=== PATIENT | female | born 1945 | race Caucasian/White ===

== ENCOUNTER → 2017-01-01 | Outpatient (CLI) | payer OTHER, MEDICARE ==
--- NOTE | 2017-01-02 08:01 | MAMMOGRAPHY REPORT ---
BILATERAL DIGITAL SCREENING MAMMOGRAM TOMOSYNTHESIS WITH CAD: 01/01/2017 CLINICAL HISTORY: Routine screening. Patient has no complaints. TECHNIQUE: Breast tomosynthesis in addition to standard 2D mammography was performed. Current study was also evaluated with a Computer Aided Detection (CAD) system. COMPARISON: Comparison is made to exams dated: 12/29/2015 mammogram, 01/07/2016 mammogram, 01/07/2016 ul trasound, 12/25/2014 mammogram, 09/01/2014 ultrasound, and 09/01/2014 mammogram - [facility] enter. BREAST COMPOSITION: The tissue of both breasts is heterogeneously dense, which may obscure small mas ses. FINDINGS: No new suspicious mass, architectural distortion or cluster of microcalcifications is seen . There are stable asymmetries in the upper outer left breast and superior right breast. An asymmet ry in the medial left breast is no longer seen, confirming benignity. There are mild vascular calcif ications and scattered benign round calcifications in the breasts. IMPRESSION: ACR BI-RADS CATEGORY 1: NEGATIVE There is no mammographic evidence of malignancy. A 1 year screening mammogram is recommended. The pa tient will receive written notification of the results. Approximately 10% of breast cancers are not detected with mammography. A negative mammographic report should not delay biopsy if a clinically suggestive mass is present. Daphne Joiner M.D. ay/:01/01/2017 16:19:01 Strategic Account Executive: Jeni YANEZ)([place]), [facility] letter sent: Normal 1/2 BI-RADS Code: ACR BI-RADS Category 1: Negative
== END | disposition home or self-care (01) ==
LOC: C.MAMM 07:34
PROVIDERS: ATTEND Family Medicine
DX: Z12.31 Encounter for screening mammogram for malignant neoplasm of breast (principal)

== ENCOUNTER → 2017-05-09 | Outpatient (CLI) | payer OTHER, MEDICARE ==
--- NOTE | 2017-05-09 10:47 | DIAGNOSTIC IMAGING REPORT ---
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 Bones are mildly demineralized. No acute fracture or dislocation is identified. Small enthesophyte noted adjacent to the greater trochanter. IMPRESSION: 1. No acute fracture or dislocation. 2. Mild to moderate right hip osteoarthritis. The above report was generated using voice recognition software. It may contain grammatical, syntax or spelling errors. Electronically signed by: Justice Young M.D. 05/09/2017 10:46 AM Dictated Date/Time: 05/09/2017 10:44 AM
--- NOTE | 2017-05-09 10:50 | DIAGNOSTIC IMAGING REPORT ---
L-SPINE MIN 4 VIEWS ROUTINE HISTORY: 71 years-old Female STRAIN OF MUSCLES TENDONS @ LOWER RT LEG chronic right hip pain for approximately one year COMPARISON: ] Grafts of same day TECHNIQUE: 5 views of the lumbar spine FINDINGS: There is mild convex right curvature of the lumbar spine. Bones are mildly demineralized. Multilevel advanced intervertebral disc space narrowing, notably at L3-L4, L4-L5 and L5-S1. Severe facet arthrosis is also present at these levels. 5 mm anterolisthesis L3 on L4 is likely secondary to long-standing facet arthropathy. No compression deformity identified. Multilevel endplate spurring. Atherosclerotic plaquing of the aorta. Soft tissues are unremarkable. Lung bases appear clear. IMPRESSION: 1. No acute lumbar spine fracture or subluxation. 2. Severe intervertebral disc space narrowing and facet arthropathy at L3-L4, L4-L5 and L5-S1. 5 mm anterolisthesis L3 on L4 is likely secondary to long-standing facet disease. The above report was generated using voice recognition software. It may contain grammatical, syntax or spelling errors. Electronically signed by: Justice Young M.D. 05/09/2017 10:49 AM Dictated Date/Time: 05/09/2017 10:46 AM
== END | disposition home or self-care (01) ==
LOC: C.RADBC 10:16
PROVIDERS: ATTEND Nurse Practitioner
DX: M25.551 Pain in right hip (principal); S86.911A Strain of unspecified muscle(s) and tendon(s) at lower leg level, right leg, initial encounter; X58.XXXA Exposure to other specified factors, initial encounter; M54.5 Low back pain; M16.11 Unilateral primary osteoarthritis, right hip

== ENCOUNTER → 2018-03-07 | Outpatient (CLI) | payer OTHER, MEDICARE | END | disposition home or self-care (01) | LOC: C.MAMM 12:41 | PROVIDERS: ATTEND Nurse Practitioner | DX: M84.88 Other disorders of continuity of bone, other site (principal); M85.852 Other specified disorders of bone density and structure, left thigh; M85.851 Other specified disorders of bone density and structure, right thigh; M65.9 Synovitis and tenosynovitis, unspecified; R29.890 Loss of height ==

== ENCOUNTER 2020-04-23 11:05 | Observation (INO) ==
--- NOTE | 2020-04-22 16:00 | Anesthesiology Consultation ---
Date of Service April 22, 2020 Assessment & Plan (1) Encounter for pre-operative examination: - No preop labs: Will order CBC for AM DOS. - Patient late add-on for DOS 04/23: PAT RN unable to reach patient as of time of review. COVID test 03/05/20 was negative. Per ER evaluation 04/21, travel screen negative, no known COVID-19 positive contacts and no current COVID-19 related symptoms. Case reviewed with Paulette Landin: given low COVID risk, order placed for Yan COVID AM DOS. At anesthesiologist discretion regarding if 20/20 needed and what PPE needed from their perspective. Chart Review Chart Review: Acceptable Risk for Surgery (pending preop CBC AM DOS) History Surgery Operation Date: 04/23/20 12:55 Proposed Procedures p Right Ankle External Fixator Application - Víctor Al MD Height/Weight Height: 5 ft 3 in Weight: 54.5 kg Allergies Allergy/AdvReac Type Severity Reaction Status Date / Time latex AdvReac Mild mild Verified 04/22/20 16:00 redness Medications Home Medications Medication Instructions Recorded Confirmed Last Taken loratadine [Claritin] 10 mg PO QAM 02/19/20 04/21/20 03/09/20 Bone Strength 3 cap PO BID 04/21/20 04/21/20 Unknown Ibs Relief Biotic 7 0 tab PO DAILY 04/21/20 04/21/20 Unknown acetaminophen [Tylenol Extra 500 mg PO TID PRN 04/21/20 04/21/20 Unknown Strength] biotin 30,000 mcg PO DAILY 04/21/20 04/21/20 Unknown magnesium chloride [Slow-Mag] 128 mg PO BID 04/21/20 04/21/20 Unknown naproxen sodium [Aleve] 440 mg PO Q12H PRN 04/21/20 04/21/20 Unknown omega-3 fatty acids-vitamin E 3 cap PO DAILY 04/21/20 04/21/20 Unknown [Fish Oil] oxycodone 5 mg PO Q4H PRN #18 tab 04/21/20 Unknown polyvinyl alcohol [Dry Eyes] 1 drp OPB BID PRN 04/21/20 04/21/20 Unknown simethicone [Gas-X] 80 mg PO BID PRN 04/21/20 04/21/20 Unknown tetrahydrozoline [Red Eye] 1 drp OPB TID PRN 04/21/20 04/21/20 Unknown turmeric root extract 1,500 mg PO DAILY 04/21/20 04/21/20 Unknown zinc 0 mg PO BID 04/21/20 04/21/20 Unknown Past Medical History Medical History Arthritis Kidney cysts benign Seasonal allergies Past Family History Family History Father Family history of diabetes mellitus Brother Family history of diabetes mellitus Grandfather Family history of diabetes mellitus Past Surgical History Surgical History History of anesthesia reaction "slow to wake" History of cataract extraction Right cataract extraction with IOL: 03/10/20: MAC sedation at [facility] History of colonoscopy History of tonsillectomy [place] teeth removed Social History Smoking Status: Never smoker tobacco type: cigarettes Hx Alcohol Use: Yes Alcohol type: beer, wine and hard liquor alcohol intake frequency: a few times a month Hx Substance Use: No substance use type: does not use Testing Electrocardiogram Date: 04/22/20 SR with PAC's at 79bpm. STA, consider digitalis effect. Of note, patient not taking digitalis*
[~2020-04-23 11:05] MED LIST: BUPIVACAINE 0.5 % 5 MG/1 ML MPF 30ML VIAL ONE; CEFAZOLIN 1000MG 1,000 MG/7.5 ML SYR IV SCH; LR 15ML/HR IV SCH
[2020-04-23 11:51] LABS: Hemoglobin 11.4 g/dL (12.0-16.0); Mean Corpuscular Hemoglobin 31.8 pg (25-34); Mean Platelet Volume 8.8 fL (7.4-10.4); Platelet Count 260 K/uL (130-400); RDW Coefficient of Variation 13.8 % (11.5-14.5); RDW Standard Deviation 48.2 fL (36.4-46.3); Red Blood Count 3.58 M/uL (4.2-5.4); White Blood Count 8.35 K/uL (4.8-10.8)
[2020-04-23 11:55] LABS: Mean Corpuscular Hgb Conc 33.5 g/dL (32-36)
--- NOTE | 2020-04-23 13:05 | History & Physical Bridge Note ---
Date of Service April 23, 2020 History & Physical Bridge Note I have examined the patient, reviewed the History & Physical and in the interval since the performance of the History & Physical I have noted the following changes of clinical significance: no changes noted
[2020-04-23] MEDS ORDERED: PROPOFOL IV EMULSION 10 MG/ML 20 ML VIAL IV ONE (13:11)
[2020-04-23] MEDS ORDERED: MIDAZOLAM HCL 1 MG/ML 2ML VIAL ONE (13:11)
[2020-04-23] MEDS ORDERED: ONDANSETRON INJ 2 MG/ML 2 ML VIAL ONE (13:11)
[2020-04-23] MEDS ORDERED: fentaNYL citrate 100 MCG/2 ML VIAL ONE ×3 (13:11→16:28)
[2020-04-23] MEDS ORDERED: LIDOCAINE HCL 2% 2 ML VIAL/AMP(20MG/ML) INFIL ONE (13:11)
[2020-04-23] MEDS ORDERED: BUPIVACAINE 0.5 % 5 MG/1 ML MPF 30ML VIAL ONE (14:01)
[2020-04-23] MEDS ORDERED: LIDOCAINE/EPINEPHRINE 1% 20 ML VIAL ONE (14:02)
[2020-04-23] MEDS ORDERED: ePHEDrine sulfate 50 MG/ML SYR ONE (15:16)
--- NOTE | 2020-04-23 16:09 | Operative Report ---
Post Operative Report Pre & Post Diagnosis Operation Date: 04/23/20 12:55 Pre-Op Diagnosis: Right Ankle Fracture Post-Op Diagnosis: Right Ankle Fracture I identified the patient and participated in the time-out.: Yes Procedure Operation Date: 04/23/20 12:55 Actual Procedures p Closed reduction of right ankle and Application of Right Ankle External Fix ator(Right) - Víctor Al MD Surgeon Víctor Al MD Porcelain Enamel Repairer Reta Almonte MD Estimated Blood Loss 5 Findings Consistent with Post-Op Diagnosis Specimens none Anesthesia Type General Complications none Disposition Accompanied Patient To Recovery: Yes Disposition: Recovery Room Description of Procedure As per 's note, I assisted in scrubbing and draping, certain parts of the procedure instruments handling and dressing application. I attest to the content of the Intraoperative Record and any orders documented therein. Any exceptions are noted below.
[2020-04-23] MEDS ORDERED: ARTIFICIAL TEARS OPB PRN (16:19)
[2020-04-23] MEDS ORDERED: HYDROmorphone INJ 1 MG/ML SYRINGE IV PRN (16:19)
[2020-04-23] MEDS ORDERED: ONDANSETRON INJ 2 MG/ML 2 ML VIAL IV PRN ×2 (16:19→16:26)
[2020-04-23] MEDS ORDERED: ACETAMINOPHEN 500 MG TAB PO PRN (16:19)
[2020-04-23] MEDS ORDERED: SIMETHICONE 80 MG CHEW PO PRN (16:19)
[2020-04-23] MEDS ORDERED: DiphenhydrAMINE HCL 50 MG/ML VIAL IV PRN (16:19)
[2020-04-23] MEDS ORDERED: METOCLOPRAMIDE HCL INJ 5 MG/ML 2 ML VIAL IV PRN (16:19)
[2020-04-23] MEDS ORDERED: MAGNESIUM HYDROXIDE SUSP 30 ML UDC PO PRN (16:19)
[2020-04-23] MEDS ORDERED: OXYCODONE IR HOME PACK PO PRN (16:19)
--- NOTE | 2020-04-23 16:20 | Fluoroscopy Report ---
FL ankle RT min 3V RTN CLINICAL HISTORY: Right ankle fracture. External fixation. COMPARISON STUDY: Right ankle 04/21/2020. FLUOROSCOPY TIME: 56 seconds. FINDINGS: 9 fluoroscopic spot images of the right ankle demonstrate placement of external fixators fo r reduction and internal fixation of the distal tibial and fibular fractures. The alignment appears n ear-anatomic. IMPRESSION: Fluoroscopy provided for external fixation of the right ankle fracture. ACT 112: Negative or not required by law. Electronically signed by: Anthony Ledezma M.D. 04/23/2020 4:19 PM
--- NOTE | 2020-04-23 16:21 | Operative Report ---
Post Operative Report Pre & Post Diagnosis Operation Date: 04/23/20 12:55 Pre-Op Diagnosis: Right Ankle Fracture Post-Op Diagnosis: Right Ankle Fracture I identified the patient and participated in the time-out.: Yes Procedure Operation Date: 04/23/20 12:55 Actual Procedures p Closed reduction of right ankle and Application of Right Ankle External Fix ator(Right) - Víctor Al MD Surgeon Víctor Al MD Pomology Teacher Reta Almonte MD, Latonia Castelan physicians event marketing assistant Estimated Blood Loss 5 Findings Consistent with Post-Op Diagnosis Specimens None Anesthesia Type General Complications none Disposition Accompanied Patient To Recovery: No Disposition: Recovery Room Indications Patient 74. She is status post fall resulting in a unstable intra-articular distal tibia posterior malleolar fracture with ankle subluxation that is difficult to control with closed reduction. Additionally she has a comminuted fibular fracture. The plan is for closed reduction external fixation. Description of Procedure Informed consent obtained. Patient identified. She identified the operative site as the right ankle. I marked with my initials. A preoperative surgical timeout was performed. A preop dose of IV antibiotics was given. She was taken to the operating room positioned supine on the OR table with a tourniquet on the right thigh. Tourniquet not inflated. Bone foam bump was used under the right leg along with a bump under the right hip. The right leg was pre-scrubbed and then prepped and draped in the usual sterile fashion. DVT prophylaxis with foot pumps and postoperatively with early mobility and Lovenox. The appropriate locations for the proximal pin cluster was identified and then to 5 mm Schanz pins were inserted in the safe zone just medial to the crest of the tibia. The appropriate location for the trans-calcaneal pin was identified 2 cm anterior to the posterior margin of the calcaneus and 2 cm inferior to the medial malleolus which was also just posterior to the posterior tibial line. A percutaneous stab wound was made and the pin was inserted parallel to the ankle joint and brought out through a percutaneous incision on the contralateral side. Threads were engaged into the bone. On the proximal tibial pin cluster fluoroscopic was used to ensure that the pins were bicortical. Then using fluoroscopic guidance pins were inserted into the proximal fifth metatarsal and first metatarsal. These were 4.0 pins inserted bicortically and confirmed with multiplanar fluoroscopy. 2 bar were inserted between the calcaneal pin and the distal pin on their corresponding side. These were locked into place. 2 larger bars were placed exiting the transverse apparatus on the proximal pin cluster down to the distal bars. A close reduction maneuver was then performed applying longitudinal traction. Various combinations of plantarflexion dorsiflexion inversion eversion etc. were attempted in order to find the most appropriate anatomical reduction. Once this was satisfied the fixator was locked into place. The ankle was in neutral. The fibula was at the length. There is no varus or valgus malalignment to the tibia fibula. The articular surface on the tibia was anatomically reduced at the level of the articular surface without shortening or displacement. Relaxing pin incisions were made as necessary and enlarged incisions were closed or needed. Wounds were copiously irrigated with sterile saline and anesthetized with 1% lidocaine and half percent Marcaine. Xeroform was applied on the 4 x 4's cast padding and an Chas wrap. Patient awakened from anesthesia without difficulty and taken to the recovery room in stable condition. There were no specimens or complications. Counts were correct. Blood loss was estimated to be 5 cc. At the conclusion of the operation spoke the patient's sister and informed her of my findings. Postoperative instructions were given. She will be admitted to the hospital overnight for PT, pain control and blood thinner. She will be nonweightbearing with elevation and icing and will receive a routine course of postop IV antibiotics. I attest to the content of the Intraoperative Record and any orders documented therein. Any exceptions are noted below.
[2020-04-23] MEDS ORDERED: ePHEDrine sulfate 50 MG/ML AMP IV PRN (16:26)
[2020-04-23] MEDS ORDERED: ATROPINE SULFATE 0.1 MG/ML 10ML SYR IV PRN (16:26)
[2020-04-23] MEDS: fentaNYL citrate 100 MCG/2 ML VIAL IV PRN ×2 (16:29→16:35)
[2020-04-23] MEDS ORDERED: HYDROmorphone INJ 1 MG/ML SYRINGE ONE (16:53)
[2020-04-23] MEDS ORDERED: HYDROmorphone INJ 0.5 MG/0.5 ML SYR IV PRN (16:56)
--- NOTE | 2020-04-23 17:09 | Anesthesiology Progress Note ---
Date of Service April 23, 2020 Anesthesia Post Procedure Vital Signs Vital Signs: Temp Pulse Pulse Resp BP Pulse Ox 04/23/20 17:06 36.7 C 89 14 170/86 H 97 04/23/20 17:00 95 H 14 172/86 H 97 04/23/20 16:50 93 H 13 176/82 H 98 04/23/20 16:40 86 12 169/77 H 95 04/23/20 16:30 82 12 178/86 H 100 04/23/20 16:20 88 12 183/81 H 100 04/23/20 16:13 36.4 C L 97 H 16 179/88 H 100 04/23/20 12:32 36.9 C 78 18 168/80 H 95 04/23/20 12:03 36.8 C 84 18 164/75 H 96 Pain Intensity Right Leg: Pain Intensity: 5 Transfer of Care Handoff Completed per policy Notes Mental Status: alert / awake / arousable and participated in evaluation Patient Amnestic to Procedure: Yes Nausea / Vomiting: adequately controlled Pain: adequately controlled Airway Patency, RR, SpO2: stable & adequate BP & HR: stable & adequate Hydration State: stable & adequate Anesthetic Complications: no major complications apparent and Pt Satisfied with anesthetic care
[2020-04-23] MEDS: SODIUM CHLORIDE 0.9% 1000ML 1,000 ML IV SCH ×2 (17:52→22:45)
[2020-04-23] MEDS: OXYCODONE/ACETAMINOPHEN 5mg/325mg TAB PO PRN ×2 (17:58→22:13)
[2020-04-23] MEDS ORDERED: MAGNESIUM CHLORIDE PO SCH (21:00)
[2020-04-23] MEDS ORDERED: ZINC SULFATE 220 MG CAPSULE PO SCH (21:00)
[2020-04-23] MEDS ORDERED: BONE STRENGTH PO SCH (21:00)
[2020-04-23] MEDS: CEFAZOLIN 1000MG 1,000 MG/7.5 ML SYR IV SCH (21:24)
[2020-04-23] MEDS: DOCUSATE SODIUM 100 MG CAP PO SCH (21:25)
[2020-04-24] MEDS: OXYCODONE/ACETAMINOPHEN 5mg/325mg TAB PO PRN ×2 (05:41→10:49)
[2020-04-24] MEDS: CEFAZOLIN 1000MG 1,000 MG/7.5 ML SYR IV SCH (06:12)
[2020-04-24 06:46] LABS: Est GFR (Non-African American) 58.7
[2020-04-24] MEDS ORDERED: ENOXAPARIN INJ 30 MG/0.3 ML SYR SQ SCH (08:00)
[2020-04-24] MEDS ORDERED: PANTOprazole 40 MG TAB PO SCH (09:00)
[2020-04-24] MEDS ORDERED: LORATADINE 10 MG TAB PO SCH (09:00)
[2020-04-24] MEDS ORDERED: BIOTIN PO SCH (09:00)
[2020-04-24] MEDS ORDERED: [UNRECOGNIZED DRUG - OTHER] PO SCH (09:00)
[2020-04-24] MEDS: DOCUSATE SODIUM 100 MG CAP PO SCH (09:01)
--- NOTE | 2020-04-24 09:14 | Orthopedic Progress Note ---
Date of Service April 24, 2020 Assessment & Plan (1) Closed fracture of tibial plafond with fibula involvement: POD 1 S/P Closed reduction and application of external fixator ankle fracture--doing well *Continue regular diet *Continue ice *Continue elevation *Continue PO meds for pain control *Continue to monitor BP--pt asymptomatic *Keep dressing intact/clean/dry *PT/OT this am--NWBING R LE with walker *Plan to DC today to home with sister after AM PT/OT *Has scheduled f/u this week in our office Present on Admission?: Yes Admission and Anticipated Discharge Date Admission Date: April 23, 2020 Anticipated date of discharge: 04/24/20 Subjective Patient sitting up in bed eating breakfast. Slept throughout the night. Pain controlled on PO meds. Denies f/c/s, CP, SOB, N/V, lightheadedness or dizziness. Hasnt had am PT/OT yet. Sister in room. Physical Exam 2 Physical Exam: Comfortable sitting up in bed. A and 0 x 3. Right LE elevated on pillow. Right External Fixator in place. Pin sites covered. Chas covering i ntact. NV intact to B LE. Teds on left leg with foot pump. Patient able to wiggle toes. Sensation intact to light touch. Palpable distal pulses. Calves are soft. R LE with moderate ankle and foot swelling Results & Data ([facility]) Vital Signs (Past 12 Hours) Vital Signs Temp Pulse Resp BP Pulse Ox 04/24/20 07:45 36.7 C 80 16 146/73 H 94 04/24/20 03:18 36.6 C 88 14 120/60 92 04/23/20 23:09 36.3 C L 77 15 137/67 98 (1) Closed fracture of tibial plafond with fibula involvement Encounter type: initial encounter Laterality: right Qualified Code(s): S82.871A - Displaced pilon fracture of right tibia, initial encounter for closed fracture; S82.831A - Other fracture of upper and lower end of right fibula, initial encounter for closed fracture
[2020-04-24] MEDS ORDERED: ZINC SULFATE 220 MG CAPSULE PO SCH (10:00)
--- NOTE | 2020-04-26 12:11 | Discharge Summary ---
Date of Service April 24, 2020 Principal Diagnosis unstable intra-articular right distal tibia posterior malleolar fracture with ankle subluxation Discharge Data Allergies Allergy/AdvReac Type Severity Reaction Status Date / Time latex AdvReac Mild mild Verified 04/23/20 11:59 redness Procedures Performed Operation Date: 04/23/20 12:55 Actual Procedures p and Application of Right Ankle External Fixator(Right) - Víctor Al MD s Closed reduction of right ankle(Left) - Víctor Al MD Ordered Studies 04/23/20 12:55 FL ankle RT min 3V RTN Routine FL fluoroscopy <1hr Routine Hospital Course (1) Closed fracture of tibial plafond with fibula involvement: Patient underwent closed reduction and application of external fixator for right ankle fracture by Dr Al on 04-23-20. Surgery was without complication. She was admitted to the floor for observation. She received post-op Ancef. She was seen POD 1 and stated her pain was controlled on PO meds. She slept through the night. She was keeping leg elevated and using ice. She tolerated PO fluids and diet. Her BP was running slightly high on POD 0. Improved throughout the night but again slightly high in am. Patient without hx of HTN. She states she does have white coat syndrome and gets anxious in hospital. She denied f/c/s, CP, SOB, N/V, lightheadedness or dizziness. She was seen by PT/OT for gait training NWBING RLE with a walker. She tolerated without issue. Inhouse DVT prohylaxis included TEDS, foot pumps, and lovenox 30mg SQ. She was deemed stable to go home with her sister who was staying with her throughout the wkd. She was instructed to continue with lovenox 30mg SQ and TEDS for DVT prophylaxis. This was sent to her pharm. A script for oxycodone was also sent for severe pain. Otherwise pt was instructed to take tylenol 1000mg every 8hrs for mild to moderate pain. She was instructed on External Fixator care, keeping it clean, dry, and covered. She is scheduled to follow-up in the office next week. She was instructed to call the office or go to the ED with any problems, questions, or concerns. She does have a BP cuff at home and will check daily. Total Time Total Time Spent Total Time Spent (In Minutes): 20min Discharge Plan Discharge Items Patient Disposition: Home - Self-Care Reason For Visit: Right Ankle Fracture Discharge Diagnosis: Right Ankle Fracture Activity: As commented below Lifting: None Lifting Comment: Right lower extremity Bathing Comment: keep leg/dressings clean and dry Exercise/Sports: None Weightbearing Comment: with walker Non-emergency contact: Surgeon Call non-emergency contact if: your temperature is above 101.5, your wound has increased redness and your wound has increased drainage Follow-up/Referrals: James Shankar MD [Primary Care Provider] - Víctor Al MD [Surgeon] - 04/27/20 8:30 am (with Jaclyn Peres PA-C for wound/pin check) Diet: Regular Addtl Attending Provider Instructions: *Oxycodone as prescribed (ALREADY SENT TO PHARMACY) as needed for severe pain *Tylenol 1000mg 3xs a day (OVER THE COUNTER) for mild to moderate pain *Lovenox 30mg twice daily (ALREADY SENT TO PHARMACY) until instructed to stop *No weightbearing right leg with walker *Ice at least 3-5xs a day for 10-20min *Elevate leg for pain and swelling as much as you can tolerate *Please call the office at [phone] if you have any questions or concerns. Pending Studies at Discharge: No Stand-Alone Forms: My [facility], Opioid Pain Management Medications and DC Order Prescriptions: New acetaminophen 500 mg Tablet 1,000 mg PO Q8H PRN (Reason: pain) Qty: 60 RF: 0 enoxaparin [Lovenox] 30 mg/0.3 mL Syringe 30 mg subcut Q12H 14 Days Qty: 8.4 RF: 0 Continued biotin 10,000 mcg Capsule 30,000 mcg PO QAM RF: 0 Bone Strength capsule 3 cap PO BID RF: 0 magnesium chloride 64 mg Tablet Extended Release 128 mg PO BID RF: 0 zinc 50 mg Tablet 50 mg PO BID RF: 0 Ibs Relief Biotic 7 tablet 1 tab PO QAM RF: 0 simethicone 80 mg Tablet,Chewable 80 mg PO BID PRN (Reason: Gi Upset) RF: 0 polyvinyl alcohol 1.4 % Drops 1 drp OPB BID PRN (Reason: Dry Eyes) RF: 0 oxycodone 5 mg tablet 5 mg PO Q4H PRN (Reason: pain) Qty: 18 RF: 0 loratadine [Claritin] 10 mg Tablet 10 mg PO QAM RF: 0 Discontinued Fish Oil 1,000 mg Capsule 3 cap PO DAILY RF: 0 turmeric root extract 500 mg Capsule 1,500 mg PO QAM RF: 0 acetaminophen [Tylenol Extra Strength] 500 mg Capsule 500 mg PO TID PRN (Reason: Fever Or Pain) RF: 0 Discharge Orders: Discharge Order (Routine); Ordered 04/24/20 Ordered By: Ariane Wadsworth/Other Patient Handouts: DVT Post Op Prevention, Enoxaparin injection Admission Data Admit Date/Time: 04/23/20 16:19 Attending Provider: Víctor Al Admit Provider: Víctor Al Primary Care Provider: James Shankar Other Interventions: Discharge Summary Assessment (RN) Last Done: 04/24/20 10:40
== END 2020-04-24 12:26 | disposition home or self-care (01) ==
LOC: ASU 11:05 → 3E 11:05

== ENCOUNTER 2020-05-04 08:01 | Inpatient (IN) ==
--- NOTE | 2020-04-29 11:34 | Anesthesiology Consultation ---
Date of Service April 29, 2020 Assessment & Plan (1) Encounter for pre-operative examination: Chart Review Chart Review: Acceptable Risk for Surgery (pending preop Covid testing) and Patient NOT seen in Pre Admission Testing Per nursing assessment 04/29/2020, pt resides in [facility]. Denies recent travel. No known Covid positive contacts or Covid related symptoms. Had previous Covid testing 04/23= negative. Preop Covid test 04/28/20= pending Right Ankle Ex Fix Application and closed reduction 04/23/20= Done under [facility] with LMA #3. No anesthesia issues noted per record History Surgery Operation Date: 05/04/20 10:40 Proposed Procedures p Open Reduction Internal Fixation Right Distal Tibia and Fibular Fractures - Víctor Al MD Height/Weight Height: 5 ft 3 in Weight: 52.163 kg Allergies Allergy/AdvReac Type Severity Reaction Status Date / Time latex AdvReac Mild mild Verified 04/23/20 11:59 redness Medications Home Medications Medication Instructions Recorded Confirmed Last Taken loratadine [Claritin] 10 mg PO QAM 02/19/20 04/29/20 04/19/20 Bone Strength 3 cap PO BID 04/21/20 04/29/20 Unknown Ibs Relief Biotic 7 1 tab PO QAM 04/21/20 04/29/20 Unknown biotin 30,000 mcg PO QAM 04/21/20 04/29/20 Unknown magnesium chloride 128 mg PO BID 04/21/20 04/29/20 Unknown oxycodone 5 mg PO Q4H PRN #18 tab 04/21/20 04/29/20 04/22/20 23:15 polyvinyl alcohol 1 drp OPB BID PRN 04/21/20 04/29/20 Unknown simethicone 80 mg PO BID PRN 04/21/20 04/29/20 Unknown zinc 50 mg PO BID 04/21/20 04/29/20 Unknown acetaminophen 1,000 mg PO Q8H PRN #60 tab 04/24/20 04/29/20 Unknown enoxaparin [Lovenox] 30 mg SUBCUT Q12H 14 Days #8.4 ml 04/24/20 04/29/20 Unknown Past Medical History Medical History Ankle fracture RT Arthritis Kidney cysts benign Seasonal allergies Past Family History Family History Father Family history of diabetes mellitus Brother Family history of diabetes mellitus Grandfather Family history of diabetes mellitus Past Surgical History Surgical History History of anesthesia reaction "slow to wake" History of cataract extraction RT/LEFT History of colonoscopy History of open reduction and internal fixation (ORIF) procedure right ankle 04/23/20 History of tonsillectomy [place] teeth removed Social History Smoking Status: Former smoker tobacco type: cigarettes Do You Dip or Chew Tobacco: No Smoking End Date: Hx Alcohol Use: Yes Alcohol type: beer, wine and hard liquor alcohol intake frequency: a few times a month Hx Substance Use: No substance use type: does not use Testing Laboratory Results Laboratory Tests 04/23/20 04/24/20 11:41 06:00 WBC 8.35 Hgb 11.4 L Hct 34.0 L Plt Count 260 Creatinine 0.96 Electrocardiogram Date: 04/22/20 SR with PAC's at 79bpm. ST abnormality, consider digitalis effect. Of note, gamal ent not taking digitalis*
[~2020-05-04 08:01] MED LIST changes: +BUPIVACAINE 0.25% 30 ML VIAL ONE; -BUPIVACAINE 0.5 % 5 MG/1 ML MPF 30ML VIAL ONE; +BUPIVACAINE 0.5 % 5 MG/1 ML PF 10ML VIAL ONE; -CEFAZOLIN 1000MG 1,000 MG/7.5 ML SYR IV SCH; +LACTATED RINGER'S 1,000 ML IV SCH
[2020-05-04] MEDS ORDERED: LIDOCAINE HCL 2% 2 ML VIAL/AMP(20MG/ML) INFIL ONE (09:42)
[2020-05-04] MEDS ORDERED: ROCURONIUM BROMIDE 10 MG/ML 5 ML VIAL IV ONE (09:42)
[2020-05-04] MEDS ORDERED: MIDAZOLAM HCL 1 MG/ML 2ML VIAL ONE (09:42)
[2020-05-04] MEDS ORDERED: fentaNYL citrate 100 MCG/2 ML VIAL ONE (09:42)
[2020-05-04] MEDS ORDERED: PROPOFOL IV EMULSION 10 MG/ML 20 ML VIAL IV ONE (09:42)
[2020-05-04] MEDS ORDERED: HYDROmorphone INJ 2 MG/ML SYR/VIAL ONE (09:43)
[2020-05-04] MEDS ORDERED: KETAMINE HCL INJ 50 MG/ML 10 ML VIAL ONE (09:43)
[2020-05-04] MEDS ORDERED: LACTATED RINGER'S 1,000 ML IV SCH (10:45)
[2020-05-04] MEDS: ceFAZolin 1000MG 1,000 MG/7.5 ML SYR IV SCH ×3 (10:55→21:03)
[2020-05-04] MEDS ORDERED: ONDANSETRON INJ 2 MG/ML 2 ML VIAL IV PRN ×2 (11:28→18:16)
[2020-05-04] MEDS ORDERED: ATROPINE SULFATE 0.1 MG/ML 10ML SYR IV PRN (11:28)
[2020-05-04] MEDS ORDERED: ePHEDrine sulfate 50 MG/ML AMP IV PRN (11:28)
[2020-05-04] MEDS ORDERED: LABETALOL HCL IV 5 MG/ML 20ML IV ONE (12:25)
[2020-05-04] MEDS ORDERED: ONDANSETRON INJ 2 MG/ML 2 ML VIAL ONE (16:32)
--- NOTE | 2020-05-04 16:44 | Fluoroscopy Report ---
FL ankle RT 2V CLINICAL HISTORY: ORIF RT ANKLE COMPARISON STUDY: Right ankle radiographs May 03, 2020. FLUOROSCOPY TIME: 167 seconds. FLUOROSCOPIC IMAGES: 3 FINDINGS: Fluoroscopy was provided during internal fixation of the right ankle fracture. Plate and sc rew fixation of the distal right fibular and tibial fractures is noted. Fracture alignment has signif icantly improved and appears near anatomic. The hardware is intact. There are no unexpected radiopaqu e foreign bodies. Ankle mortise alignment has significantly improved as well. IMPRESSION: Fluoroscopy provided during right ankle internal fixation. ACT 112: Negative or not required by law. Electronically signed by: Jose Armando Tripp M.D. 05/04/2020 4:42 PM
--- NOTE | 2020-05-04 17:01 | Operative Report ---
Post Operative Report Pre & Post Diagnosis Operation Date: 05/04/20 09:50 Pre-Op Diagnosis: Right Distal Tibia & Fibula Fractures Post-Op Diagnosis: Right Distal Tibia & Fibula Fractures I identified the patient and participated in the time-out.: Yes Procedure Operation Date: 05/04/20 09:50 Actual Procedures p Open Reduction Internal Fixation Right Distal Tibia and Fibula Fractures; Removal of External Fixator(Right) - Víctor Al MD Surgeon Víctor Al M.D. Adhesive Primer Ida Peres PA-C Estimated Blood Loss 50 Findings Consistent with Post-Op Diagnosis Specimens None Complications none Description of Procedure Patient was taken to the operating room, placed under general anesthesia, given 1 gm IV Ancef for surgical prophylaxis. Time out performed. I was present during the entire case, please see Dr. Al's operative report for further details. I attest to the content of the Intraoperative Record and any orders documented therein. Any exceptions are noted below.
--- NOTE | 2020-05-04 17:09 | Operative Report ---
Post Operative Report Pre & Post Diagnosis Operation Date: 05/04/20 09:50 Pre-Op Diagnosis: Right Distal Tibia & Fibula Fractures Post-Op Diagnosis: Right Distal Tibia & Fibula Fractures I identified the patient and participated in the time-out.: Yes Procedure Operation Date: 05/04/20 09:50 Actual Procedures p Open Reduction Internal Fixation Right Distal Tibia and Fibula Fractures; Removal of External Fixator(Right) - Víctor Al MD Surgeon Víctor Al MD Care Consultant Ida Meredith Estimated Blood Loss 50 Findings Consistent with Post-Op Diagnosis Specimens None Drains None Anesthesia Type General Regional Complications none Disposition Accompanied Patient To Recovery: No Disposition: Recovery Room Indications Patient 74. She is status post a closed reduction and external fixation of a pilon type distal tib-fib fracture. She had near anatomic alignment at the time of her closure duction and external fixation. There has been some loss of reduction. CT scan did not demonstrate any significant articular compression. She is taken to surgery for adjustment of her exfix as well as ORIF of her distal tib-fib fracture. She has no clinical evidence of DVT when assessed preoperatively. She was on blood thinner until 24 hours prior to surgery. Description of Procedure Informed consent obtained. Patient identified. She identified the operative site as the right ankle. I marked with my initials and a preop surgical timeout was performed. A preop dose of antibiotics was given. She was taken to the operating room positioned supine on the operating room table. A tourniquet was applied to the right thigh. Suture for one of her pins was removed. The fixa tor was in good condition. DVT prophylaxis with foot pumps intraoperatively. Early mobility and Lovenox postoperatively. Initial fluoroscopic images showed some irregularity on the AP towards the m edial side of the distal tibia. Additionally there was exterior displacement of the talus and posterior malleolar fracture with slight joint subluxation. The external fixator was loosened more traction was applied and the fracture was readjusted and this resulted in near anatomic alignment on the lateral view. The fixator was prescrubbed with Betadine solution as well as the entire leg. The leg was then prepped with Betadine. The toes were covered with Ioban. The limb was exsanguinated with the Esmarch and tourniquet inflated to 250 mmHg. The tourniquet was let down after 2 hours of inflation. A lateral incision about 15 cm in length was made just posterior to the fibula and coursing several centimeters distal to it. The skin was incised. Blunt dissection was utilized down to the subcu thin subcutaneous layer. At that time I then opened the fascia posterior to the peroneal tendons. The sural nerve was protected in the posterior skin flap. I then incised the fascia overlying the flexor hallucis longus and carefully using cautery and blunt dissection elevated up off of the posterior tibia and fibula. Some vessels in the posterior compartment adjacent to the posterior fracture site were cauterized. The comminuted proximal portion of the fracture was identified and subperiosteal elevation was performed in order to inspector motor vehicles the alignment. Subperiosteal exposure of the medial fracture site was performed posterior medially. I then carefully elevated the skin and subcutaneous tissues over the fibula. I stopped at the anterior aspect of the fibula. I then bluntly dissected down to the tibia just anterior to the fibula and made a small area to insert a bone clamp. This was subperiosteal without undermining the skin. I then went ahead and manipulated the posterior fracture gaining some length and rotation and fixed it with a large clamp from anterior to posterior and a pin. This was adjusted several times but I could not obtain an adequate reduction. It was noted that the medial fracture fragment was also displaced. I then went ahead and made a medial incision with a longitudinal 10 cm incision paralleling the tibia. The sural nerve and vein were identified and retracted posteriorly as the incision was made slightly anterior. Subperiosteal exposure of the fracture site was performed and an ankle arthrotomy was made. The ankle joint was irrigated. The cartilage did not appear to be significantly damaged and there was not any articular impaction noted. It was noted that there was substantial displacement of the medial fragment where it was rotated posterior medially as well as shortened. I attempted to manipulate the medial fragment but could not do so. This was possibly because the posterior fragment was fixated. I did some subperiosteal elevation medially but preserved the lower half of the soft tissue attachments. The fracture site was opened and cleaned. There was substantial comminution noted anteriorly but there was some bates points which could be matched up to inspector motor vehicles reduction. I then remove the fixation from the posterior malleolar fracture. We were then able to loosen the fixator manipulate the ankle apply a clamp from medial to lateral across the tibia and pinned the medial fracture fragment in place. The length was adjusted to be appropriate. I then went ahead and manipulated the posterior fracture fragment rotating it slightly and pinning it into place with 2 pins. This then resulted in anatomic alignment on the lateral view for the posterior fracture fragment and anatomic alignment on the medial side. Some minor articular incongruity was addressed by adjusting the length of the medial side. There was 1 mm or less of articular step-off appreciated. This could be visualized directly. I then took a locking one third tubular plate and applied it medially. I applied a 4.0 partially-threaded cancellous screw from medial to lateral followed by a cortical screw proximally. Another cortical screw was placed proximally and a cancellous screw placed distally. After the fixator was removed a locking screw was placed in the most distal hole. This resulted in anatomic alignment and secure fixation of the medial fracture. Posteriorly a 3 hole across and 4-hole up the shaft plate was flipped over and applied to the posterior tibia. Its position was adjusted x2 fluoroscopically for adequate location. I then applied to 4.0 cannulated screws distally using fluoroscopic guidance. 2 shaft screws were applied proximally to compress the plate to the bone. I then applied another cancellus screw more proximally into the distal fragment. Alignment was anatomic and fixation was secure. I then exposed the proximal and distal portions of the fibula leaving the Comminuted portion intact. I tunneled a 8 hole plate underneath the periosteum. I assessed position and reduction fluoroscopically. By applying traction to the fixator this improved alignment. Additionally a tenaculum was utilized to distract the fibula and some lateralward pressure was applied and it was then fixed proximally and distally with cortical screws. This resulted in anatomic alignment. I then applied 2 locking screws proximally and 2 additional locking screws distally. Those were unicortical. The cortical screw distally was replaced with a unicortical locking screw. After removing the fixator the syndesmosis was stressed and found to be stable. Alignment was anatomic hardware in good position. Fracture stable. At this time the fixator was removed. The fixator pins were reprepped. The pins were removed. The pinholes were later curetted. The calcaneal pin was cut medially and brought out laterally. At the end of the case the holes were irrigated and left open. The fracture remained stable and further fluoroscopic images in the AP and lateral planes confirmed this. Copious irrigation of the and wounds was performed throughout the procedure to keep them moist. I closed the fascia over the fibular plate with 2-0 Vicryl. The fascia medially could not be reapproximated over the plate. The skin was closed medially with 2-0 and 3-0 Vicryl followed by rene. The skin laterally was closed with 2-0 and 3-0 Vicryl followed by rene. The leg was cleaned with wet and dry sponges and a bulky soft sterile dressing was applied with a posterior splint ankle in neutral position. Skin was in good condition with minimal swelling and good capillary refill throughout. After adjusting the fixator to beginning of the procedure the patient was then placed into the lateral position. Bony prominences were inspected and padded. Beanbag was utilized. Torso secured to the table. Axillary roll inserted. Patient is awake from anesthesia difficulty and taken to the recovery room in st able condition. There were no specimens or complications. Counts were correct. Blood loss estimated to be 50 cc. Bleeding controlled with pressure and cautery. At the conclusion of the operation spoke the patient's friend and informed him of my findings. The plan will be admit to the hospital. Start Lovenox 12 hours postoperatively. Elevate the leg. Postop antibiotics. She will be nonweightbearing on the right leg for the time being. We will seek a wound healing and then physical therapy for range of motion. I attest to the content of the Intraoperative Record and any orders documented therein. Any exceptions are noted below.
[2020-05-04] MEDS ORDERED: HYDROmorphone INJ 2 MG/ML SYR/VIAL IV PRN (17:12)
[2020-05-04] MEDS ORDERED: fentaNYL citrate 100 MCG/2 ML VIAL IV PRN (17:12)
[2020-05-04] MEDS: fentaNYL citrate 100 MCG/2 ML VIAL IV PRN ×2 (17:15→17:20)
--- NOTE | 2020-05-04 17:47 | Anesthesiology Progress Note ---
Date of Service May 04, 2020 Anesthesia Post Procedure Vital Signs Vital Signs: Temp Pulse Pulse Resp BP Pulse Ox 05/04/20 17:45 84 16 181/71 H 97 05/04/20 17:35 37.2 C 91 H 15 145/66 H 97 05/04/20 17:25 85 16 149/78 H 97 05/04/20 17:15 79 14 164/77 H 100 05/04/20 17:09 37.1 C 86 14 185/98 H 100 05/04/20 09:20 36.6 C 72 20 149/76 H 94 05/04/20 08:56 36.7 C 77 20 168/67 H 99 Pain Intensity Right Ankle: Pain Intensity: 7 Transfer of Care Handoff Completed per policy Notes Mental Status: alert / awake / arousable and participated in evaluation Patient Amnestic to Procedure: Yes Nausea / Vomiting: adequately controlled Pain: adequately controlled Airway Patency, RR, SpO2: stable & adequate BP & HR: stable & adequate Hydration State: stable & adequate Anesthetic Complications: no major complications apparent and Pt Satisfied with anesthetic care
[2020-05-04] MEDS ORDERED: MAGNESIUM HYDROXIDE SUSP 30 ML UDC PO PRN (18:16)
[2020-05-04] MEDS ORDERED: METOCLOPRAMIDE HCL INJ 5 MG/ML 2 ML VIAL IV PRN (18:16)
[2020-05-04] MEDS ORDERED: bisacodyL 10 MG SUPP PR PRN (18:16)
[2020-05-04] MEDS ORDERED: NALOXONE HCL 0.4 MG/1 ML VIAL/CARP IV PRN (18:16)
[2020-05-04] MEDS ORDERED: NON-FORMULARY MEDICATION (Zinc 50 MG) PO SCH (21:00)
[2020-05-04] MEDS ORDERED: MAGNESIUM CHLORIDE PO SCH (21:00)
[2020-05-04] MEDS: ACETAMINOPHEN 500 MG TAB PO SCH (21:06)
[2020-05-04] MEDS: oxyCODONE HCL IR 5 MG TAB (IMMEDIATE RELEASE) PO PRN (21:06)
[2020-05-04] MEDS: SENNA 8.6 MG TAB PO SCH (21:07)
[2020-05-04] MEDS: DOCUSATE SODIUM 100 MG CAP PO SCH (21:07)
[2020-05-04] MEDS: SODIUM CHLORIDE 0.9% 1000ML 1,000 ML IV SCH (21:15)
[2020-05-04] MEDS: HYDROmorphone INJ 0.5 MG/0.5 ML SYR IV PRN (22:29)
[2020-05-04] MEDS: traMADol HCL 50 MG TABLET PO PRN (23:35)
[2020-05-05] MEDS: oxyCODONE HCL IR 5 MG TAB (IMMEDIATE RELEASE) PO PRN ×5 (02:24→19:56)
[2020-05-05] MEDS: ceFAZolin 1000MG 1,000 MG/7.5 ML SYR IV SCH (03:52)
[2020-05-05] MEDS: SODIUM CHLORIDE 0.9% 1000ML 1,000 ML IV SCH (05:59)
[2020-05-05] MEDS: ACETAMINOPHEN 500 MG TAB PO SCH ×3 (06:00→21:28)
[2020-05-05 06:33] LABS: Hematocrit (blood only) 30.9 % (37-47); Mean Corpuscular Hemoglobin 31.3 pg (25-34); Mean Corpuscular Hgb Conc 32.4 g/dL (32-36); Mean Corpuscular Volume 96.6 fL (80-100); Mean Platelet Volume 8.8 fL (7.4-10.4); Platelet Count 544 K/uL (130-400); RDW Standard Deviation 49.6 fL (36.4-46.3); White Blood Count 11.39 K/uL (4.8-10.8)
[2020-05-05 07:18] LABS: BUN Creatinine Ratio 15.3 (10-20); Calcium 8.6 mg/dl (8.5-10.1); Creatinine Clr Calc Pharmacy 41.7 ml/min; Est GFR (African American) 65.5; Est GFR (Non-African American) 56.5; Potassium 3.9 mmol/L (3.5-5.1)
[2020-05-05] MEDS: HYDROmorphone INJ 0.5 MG/0.5 ML SYR IV PRN ×3 (07:41→17:25)
--- NOTE | 2020-05-05 08:39 | Operative Report ---
Post Operative Report Pre & Post Diagnosis Operation Date: 05/04/20 09:50 Pre-Op Diagnosis: Right Distal Tibia & Fibula Fractures Post-Op Diagnosis: Right Distal Tibia & Fibula Fractures I identified the patient and participated in the time-out.: Yes Procedure Operation Date: 05/04/20 09:50 Actual Procedures p Open Reduction Internal Fixation Right Distal Tibia and Fibula Fractures; (Right) - Víctor Al MD s Removal of External Fixator(Right) - Víctor Al MD Surgeon Víctor Al MD Sterile Processing Tech Ida Meredith Estimated Blood Loss 50 Findings Consistent with Post-Op Diagnosis Specimens none Drains none Anesthesia Type General Complications none Disposition Accompanied Patient To Recovery: Yes Disposition: Recovery Room Description of Procedure As per Dr. Al's note, I assisted in scrubbing and draping, instruments handling, certain parts of the procedure and wound closure I attest to the content of the Intraoperative Record and any orders documented therein. Any exceptions are noted below.
[2020-05-05] MEDS: LORATADINE 10 MG TAB PO SCH (08:43)
[2020-05-05] MEDS: DOCUSATE SODIUM 100 MG CAP PO SCH ×2 (08:43→21:24)
[2020-05-05] MEDS: MULTIVITAMIN TAB PO SCH (08:44)
[2020-05-05] MEDS: traMADol HCL 50 MG TABLET PO PRN ×2 (09:21→18:19)
--- NOTE | 2020-05-05 09:43 | Progress Notes ---
DATE: 05/05/2020 She has been having some pain. The pain is reasonably well managed with oral and IV medications. Otherwise, she is comfortable. She is afebrile. Her vital signs are stable. Her blood pressure and pulse have been a little bit elevated intermittently, which I think is likely secondary to her pain. Her splint is loosened. She has some scant drainage from the pin sites. The ankle was in neutral position. She has a trace dorsalis pedis pulse. She is able to wiggle her toes and flex and extend her ankle. Her toes are warm with capillary refill less than 2 seconds and she reports sensation intact throughout the circumference of her forefoot. Her x-rays are reviewed with her. We will continue her admission due to pain control. She can be nonweightbearing up with crutches or walker on the right leg. Routine course of postop IV antibiotics. Check vitamin D level. Administer supplemental vitamin D. Begin Lovenox. Continue elevation and icing. We discussed with her the results of the surgery and reviewed x-rays.
[2020-05-05 09:59] LABS: Vitamin D, 25 Hydrox 13.2 ng/ml (30-100)
[2020-05-05 10:36] LABS: Act87 Hepatitis C IgG Screen Neg (Neg)
[2020-05-05] MEDS: ENOXAPARIN INJ 30 MG/0.3 ML SYR SQ SCH ×2 (10:59→21:29)
[2020-05-05] MEDS ORDERED: hydrALAZINE HCL 20 MG/ML VIAL IV PRN (16:46)
[2020-05-05] MEDS: SENNA 8.6 MG TAB PO SCH (21:24)
[2020-05-05] MEDS ORDERED: HYDROmorphone INJ 0.5 MG/0.5 ML SYR IV PRN (21:30)
[2020-05-06] MEDS: oxyCODONE HCL IR 5 MG TAB (IMMEDIATE RELEASE) PO PRN ×4 (00:55→14:34)
[2020-05-06] MEDS: traMADol HCL 50 MG TABLET PO PRN (03:43)
[2020-05-06] MEDS: ACETAMINOPHEN 500 MG TAB PO SCH ×2 (05:57→14:35)
[2020-05-06] MEDS: DOCUSATE SODIUM 100 MG CAP PO SCH (08:42)
[2020-05-06] MEDS: LORATADINE 10 MG TAB PO SCH (08:42)
[2020-05-06] MEDS: ENOXAPARIN INJ 30 MG/0.3 ML SYR SQ SCH (08:42)
[2020-05-06] MEDS: MULTIVITAMIN TAB PO SCH (08:42)
--- NOTE | 2020-05-06 12:03 | Progress Notes ---
DATE: 05/06/2020 Resting comfortably in bed at this time. She, however, had substantial pain last evening, which required increase of her pain medications. Some pain earlier today, but currently well controlled. She has been afebrile and her vital signs have been stable. Her blood pressures have been running slightly high. Today is about 155/65. Trending down from previous. She has had some hydralazine. Her dressing is changed. Sensation is intact throughout the foot. Posterior tibial is trace. Dorsalis pedis is trace. There is one 1 x 2 cm anterior skin blister. Otherwise, she has tight shiny skin, but no evidence of wound problems or necrosis. Wound edges are well approximated. The pin sites are not actively draining. Her leg is cleansed. Capillary refill less than 2 seconds. She can wiggle her toes and she can initiate ankle flexion and extension. Her calf is soft and supple. There is some mild erythema consistent with inflammation around the anterior ankle. A well-padded splint with Xeroform gauze, cast padding. Ankle neutral. Doing very well. Continue elevation, icing, nonweightbearing. She has been accepted at [facility] which is agreeable. We will see her back next week for a wound check. Continue Lovenox for DVT prophylaxis. Her vitamin D is low and will be replaced. Level is 13.2. She will need a DEXA scan as an outpatient if she has not already had one recently. Crutches or walker.
--- NOTE | 2020-05-06 12:14 | Discharge Summary ---
Date of Service May 06, 2020 Discharge Data Consultations 05/04/20 18:16 Consult Case Management - Discharge Planning Routine Procedures Performed Operation Date: 05/04/20 09:50 Actual Procedures p Open Reduction Internal Fixation Right Distal Tibia and Fibula Fractures; (Right) - Víctor Al MD s Removal of External Fixator(Right) - Víctor Al MD Hospital Course (1) Closed fracture of tibial plafond with fibula involvement: Patient was admitted to [facility] after undergoing removal of her external fixator right lower extremity and open reduction internal fixation of her right tibial plafond fracture and right fibular fracture. Surgery was performed on May 04, 2020. Surgery was performed with general anesthesia and peripheral nerve block. She tolerated the procedure well without any intraoperative complications. She was given 1 g of IV Ancef for surgical prophylaxis which was continued for 24 hours after her procedure. Intraoperative x-rays were obtained and showed good reduction of the fractures with retained hardware. Postoperatively, she was allowed out of bed with assistance of a walker but to remain nonweightbearing right lower extremity. Encouraged ice and elevation of her right ankle. Keep the splint on at all times. She was given a regular diet. Pain medication consisted of IV Dilaudid, oral oxycodone, oral Tylenol, oral tramadol. Bowel regimen was provided as needed here in the hospital. She was started on Colace. She was also started on Lovenox 30 mg twice daily on postoperative day 1 for DVT prophylaxis. She was also instructed to wear a Erik stocking on the left lower extremity as well as AV impulse boots for DVT prophylaxis. Physical therapy and Occupational Therapy consults were placed. She ambulated well with the assistance of a walker and maintaining nonweightbearing of her right lower extremity. She was seen and evaluated by case management. Referrals were placed for home health and also [facility]. Her insurance approved [facility] and they did have a bed available. Her vital signs remained stable during her inpatient stay except for an elevated heart rate and blood pressure. This may be from postoperative pain. IV hydralazine as needed was ordered to use for blood pressure greater t langford 150/90. Her vitamin D level was also checked during her inpatient stay and was 13. She was started on vitamin D 50,000 international units weekly for 6 weeks. At that time her vitamin D will be rechecked. On postoperative day 1 it was determined that she did have too much pain to be discharged to her home. Also disposition needs were still being arranged. She agreed to stay another night for pain management. On postoperative day 2, her dressings were changed of her right lower extremity. Incisions were clean dry and intact. She was found to have a small fracture blister in the anterior central aspect of her ankle joint. No other blisters were noted. New dressings and splint were applied. She tolerated the dressing change well. She states her pain is better controlled today. At this time she is medically stable for discharge to [facility]. Discharge instructions were discussed. Postoperative follow- up was also arranged. Encouraged ice and strict elevation of her right lower extremity. All questions were answered. Discharge Instructions DIET: * Resume previous diet. MEDICATIONS: * Please take your prescriptions as instructed at your pre-op appointment and/or see medication discharge instructions listed above. * Take oxycodone or tramadol or extra strenght tylenol as needed for pain. * Use Lovenox 30mg BID x 2-4 weeks. Continued Lovenox until discontinued by Dr. Al. * Continue Vitamin D3 50,000 IU weekly x 6 weeks. Take weekly on Wednesdays. * If concerns develop, call your physician's office at . SPECIAL CARE INSTRUCTIONS: * Ice to right ankle as needed for pain/swelling. * Elevate right lower extremity above heart to relieve pain/swelling. * Keep heels off of bed at all times * Do not put any weight on right leg * Use crutches/walker or knee scooter to assist with ambulation. * Keep dressing clean, dry, intact. Keep splint on at all times. * Allowed for range of motion right knee, right hip and toes right foot. * Obtain CBC on Sunday05/10/[address] and copy results to Dr. Al * Your surgical extremity may be discolored due to prepping agents used on the skin. A bluish-green tint is a normal variant and should not cause alarm. Call your doctor at [phone] if: * Temperature above 101 degrees * Pain not relieved by pain medicine ordered * There is increased drainage or redness from any incision * You have any unanswered questions, problems or concerns. FOLLOW UP VISIT: * If not already scheduled, please call the office at to schedule a follow-up appointment.
== END 2020-05-06 17:04 | DRG 494 ==
LOC: ASU 08:01 → 3E 17:13

== ENCOUNTER 2025-04-08 15:16 | Inpatient (IN) ==
--- NOTE | 2025-04-08 15:39 | Emergency Department Note ---
Impression & Plan Unstable angina, Non-ST elevation DE (NSTEMI) ED Provider Note NAME: GABRIELLA MEANS AGE: 79 SEX: F : 1945 ARRIVES VIA: Walk-In INFORMANT: Patient, friend ED PROVIDER(S): Betito Wan DO CHIEF COMPLAINT: chest pain HPI: This is a 79-year-old female with the PMHx of hypertension, scleroderma and vitamin D deficiency presenting to [facility] for further evaluation of chest pain. Patient is accompanied by her friend who provide additional history. Patient reports that she was sitting down to have lunch with one of her friends. She did not feel well. She states that she ordered a mixed drink as well as a chicken sandwich and Citizen Of [place] fries. She was barely able to eat any of her meal or have her drink. She states that she had worsening sharp and stabbing chest pain that is described as substernal and in the epigastric region. She has never had this before. No exertional components. She was diaphoretic and became pale. Friend reports that she takes antihypertensives. No recent surgeries. Did have a ankle/foot reconstruction on the right in 2019. Patient denies any lower extremity swelling. She states it is very difficult for her to breathe at this time. They deny fever or chills. No cough or congestion. They deny abdominal pain, nausea and vomiting. No urinary complaints. No recent changes in bowel movements. Patient denies recent changes in medications or OTC supplements. Patient offers no other complaints, today. ADDITIONAL HISTORY OBTAINED: Per HPI Chronic Medical/Social Conditions Affecting Care: Per HPI PAST MEDICAL HISTORY: See Below PAST SURGICAL HISTORY: See Below FAMILY HISTORY: See Below SOCIAL HISTORY: See Below HOME MEDICATIONS: See Below ALLERGIES: See Below VITALS: See Below PHYSICAL EXAMINATION: GENERAL: Sitting up in bed, alert, well appearing, well nourished, no distress, non-toxic EYE EXAM: normal conjunctiva. OROPHARYNX: no exudate, no erythema, lips, buccal mucosa, and tongue normal and mucous membranes are moist NECK: supple, no nuchal rigidity, no adenopathy, non-tender LUNGS: Clear to auscultation. Normal chest wall mechanics HEART: no murmurs, regular rate, regular rhythm, 2+ distal pulses in all 4 extremities. She is warm and well-perfused. ABDOMEN: abdomen soft, Tenderness to palpation in the epigastrium, no masses, no rebound or guarding. BACK: Back is symmetrical on inspection and there is no deformity, no midline tenderness, no CVA tenderness. SKIN: no rashes and no bruising UPPER EXTREMITIES: upper extremities are grossly normal. LOWER EXTREMITIES: No pitting edema. NEURO EXAM: Normal sensorium, GCS 15, normal speech, no gross weakness of arms, no gross weakness of legs. MEDICAL DECISION MAKING: Differential diagnoses includes but not limited to ACS, stable vs unstable angina, dysrhythmia, viral URI, pneumonia, pericarditis, pneumothorax, costochondritis, MSK strain, PE, hypertensive emergency, psychological causes, esophageal reflux, gastritis In summary, this is a 79 year old female who presented with chest pain. Differential as above. Nursing notes and pertinent past medical records reviewed. Vital signs reviewed and the patient is hypertensive but otherwise afebrile and hemodynamically stable. History and presentation revealed Risk factors for ACS including hypertension, dyslipidemia and age. Her symptoms are consistent with angina but could be other etiologies including esophageal reflux, esophageal spasm and anxiety. Physical examination revealed she does not appear to be in cardiogenic shock or other shock like state at this time. She overall appears well. She has bilateral breath sounds. Her vital signs are stable besides hypertension. Could also be hypertensive urgency. As a result of my initial evaluation, we will plan for labs, chest x-ray while giving a aspirin load and sublingual nitroglycerin. Diagnostics interpreted by me include EKG and cardiac monitoring as listed below: -Cardiac Monitoring: An order was placed for continuous cardiac monitoring. The monitor shows a rate of 80s with regular rhythm. -ECG: initial EKG independently interpreted by me reveals normal sinus rhythm at a ventricular rate of [address] segment changes to suggest STEMI. Questionable elevation in V2-V3. -Repeat ECG: Normal sinus rhythm at a ventricular rate of [address] segment changes to suggest STEMI. Intervals are within normal limits. There is poor R wave progression. Patient completed laboratory studies and imaging. Results independently interpreted by me are mild anemia that stable as compared to prior. No significant leukocytosis. The patient was managed with ASA load and sublingual nitroglycerin. Patient's blood pressure improved. She was also given a GI cocktail with Maalox and famotidine. On reevaluation, Her pain had mildly improved. The patient had a troponin leak with elevated troponin. Cardiology was consulted and we discussed admission with telemetry as well as heparin bolus/drip. Given that I was in a critical patient's room, this was discussed by Carmina HOLLAND. Ultimately, the decision was made to admit the patient for NSTEMI. I discussed the case with the hospitalist service via telephone/TigerText and they are agreeable to admit the patient to their services. Based on the above, including the patient's age, coexisting illnesses, labs, imaging, and exam findings the decision to treat as an inpatient. I discussed the patient with the hospitalist team who recommended admission to their services. They received the medications, treatments, interventions indicated above and their condition remained stable. I discussed my findings with the patient and their family and they understand and agree with the treatment plan. All patient / family questions were answered to their satisfaction. Consults/Care Managements Discussions: Per [facility] ER treatment provided: See above Procedures: none Critical Care: None The chart was completed utilizing [employer] Speech voice recognition software. Grammatical errors, random word insertions, pronoun errors, and incomplete sentences are an occasional consequence of this system due to software limitations, ambient noise, and hardware issues. Any formal questions or concerns about the content, text, or information contained within the body of this dictation should be directly addressed to the physician for clarification. Past Med/Surg History Problem List (Updated 04/08/25 @ 19:38 by Betito Wan DO) Non-ST elevation DE (NSTEMI) (Acute) Unstable angina (Acute) Dyslipidemia NSTEMI (non-ST elevated myocardial infarction) Hypertension Scleroderma Arthralgia Vitamin D deficiency Seasonal allergies Medical History Ankle fracture RT Encounter for pre-operative examination Arthritis Kidney cysts benign Surgical History History of open reduction and internal fixation (ORIF) procedure right ankle 04/23/20 History of cataract extraction RT/LEFT History of anesthesia reaction "slow to wake" History of colonoscopy [place] teeth removed History of tonsillectomy Family History Father Family history of diabetes mellitus Rheumatoid arthritis Brother Family history of diabetes mellitus Grandfather Family history of diabetes mellitus Rheumatoid arthritis Aunt Lupus (systemic lupus erythematosus) Social History Smoking Status: Former smoker Tobacco Type: Cigarettes Second Hand Exposure: Yes (IN THE PAST); Do You Dip or Chew Tobacco: No; Hx Alcohol Use: Yes Alcohol type: beer, wine and hard liquor Hx Substance Use: No Preferred Language: Swedish Communication Ability: Effective Intellectual Property Manager Required: No Beliefs That Will Affect Care: None Current Living Situation: Alone Feels Safe at Home: Yes Assistive Devices: Walker Allergies Allergies Allergy/AdvReac Type Severity Reaction Status Date / Time latex AdvReac Mild mild Verified 04/08/25 19:00 redness Home Meds Home Medications Medication Instructions Recorded Confirmed loratadine 10 mg tablet (Claritin) 10 mg PO QAM 02/19/20 04/08/25 polyvinyl alcohol 1.4 % eye drops 1 drp OPB BID PRN Dry Eyes 04/21/20 04/08/25 cyanocobalamin (vitamin B-12) 1,000 mcg PO DAILY 07/01/24 04/08/25 1,000 mcg tablet diclofenac sodium 1 % topical gel 2 g topical QID 07/01/24 04/08/25 (Voltaren Arthritis Pain) turmeric 400 mg capsule 400 mg PO Q2D 07/01/24 04/08/25 cholecalciferol (vitamin D3) 125 125 mcg PO DAILY 12/30/24 04/08/25 mcg (5,000 unit) capsule Lactobacillus acidophilus 10 10,000 mmu cells PO DAILY 04/08/25 04/08/25 billion cell capsule zinc acetate 50 mg (zinc) capsule 50 mg PO BID 04/08/25 04/08/25 Previous Rx's Medication Instructions Recorded acetaminophen 500 mg tablet 1,000 mg (2 x 500 mg) PO Q8H PRN 04/24/20 pain #60 tabs lisinopril 20 mg tablet 20 mg PO DAILY #30 tabs 03/30/25 Results & Data (ED) Vital Signs Vital Signs - 24 hr 04/08/25 15:18 04/08/25 16:04 04/08/25 16:16 Temperature 36.6 C Temperature Source Temporal Artery Scan Pulse Rate 84 86 Pulse Rate [Apical] 89 Pulse Rate from SpO2 Sensor Respiratory Rate 24 16 Respiratory Effort / Characteristics Non-Labored Spontaneous Respiratory Depth Normal Blood Pressure 200/100 H Blood Pressure [Right Arm] 158/96 H Blood Pressure Mean 133 Blood Pressure Mean [Right Arm] 116 Pulse Oximetry 99 96 Oxygen Delivery Method Room Air Room Air Sepsis Recent Fever Within 48 Hours No Sepsis New/Unexplained Change in Mental Status No Sepsis Action Taken by Nursing No Action Required 04/08/25 16:24 04/08/25 16:30 04/08/25 16:30 Temperature Temperature Source Pulse Rate 87 85 Pulse Rate [Apical] Pulse Rate from SpO2 Sensor 88 84 Respiratory Rate 16 16 Respiratory Effort / Characteristics Respiratory Depth Blood Pressure 141/85 H Blood Pressure [Right Arm] Blood Pressure Mean 98 Blood Pressure Mean [Right Arm] Pulse Oximetry 95 97 Oxygen Delivery Method Sepsis Recent Fever Within 48 Hours Sepsis New/Unexplained Change in Mental Status Sepsis Action Taken by Nursing 04/08/25 17:00 04/08/25 17:00 Temperature Temperature Source Pulse Rate 80 Pulse Rate [Apical] Pulse Rate from SpO2 Sensor 80 Respiratory Rate 16 Respiratory Effort / Characteristics Respiratory Depth Blood Pressure 137/74 Blood Pressure [Right Arm] Blood Pressure Mean 98 Blood Pressure Mean [Right Arm] Pulse Oximetry 97 Oxygen Delivery Method Sepsis Recent Fever Within 48 Hours Sepsis New/Unexplained Change in Mental Status Sepsis Action Taken by Nursing Laboratory Data 04/08/25 15:33 04/08/25 15:33 Lab Results 04/08/25 04/08/25 Range/Units 15:33 18:09 WBC 5.51 (4.8-10.8) K/ul RBC 3.93 L (4.20-5.40) M/uL Hgb 11.8 L (12.0-16.0) g/dl Hct 36.1 L (37.0-47.0) % MCV 91.9 (80.0-100.0) fL MCH 30.0 (25.0-34.0) pg MCHC 32.7 (32.0-36.0) g/dL RDW Std Deviation 46.1 (36.4-46.3) fL RDW Coeff of Jadiel 13.6 (11.5-14.5) % Plt Count 273 (130-400) K/uL MPV 9.1 L (9.4-12.4) fL Immature Gran % (Auto) 0.2 % Neut % (Auto) 55.2 % Lymph % (Auto) 34.5 % Mercer % (Auto) 6.7 % Eos % (Auto) 2.5 % Baso % (Auto) 0.9 % Neut # (Auto) 3.04 (1.40-6.50) K/uL Lymph # (Auto) 1.90 (1.20-3.40) K/uL Mercer # (Auto) 0.37 (0.11-0.59) K/uL Eos # (Auto) 0.14 (0.00-0.50) K/uL Baso # (Auto) 0.05 (0.00-0.20) K/uL Immature Gran # (Auto) 0.01 (0.01-0.20) K/uL PT 10.7 (9.0-12.0) Seconds INR 1.0 (0.9-1.1) APTT 28 (21-31) Seconds PTT Ratio 1.0 Sodium 139 (136-145) mmol/L Potassium 3.7 (3.5-5.1) mmol/L Chloride 106 (98-107) mmol/L Carbon Dioxide 22 (21-32) mmol/L Anion Gap 11 (3-11) BUN 18 (6-23) mg/dl Creatinine 1.02 (0.6-1.2) mg/dl Est Cr Clr Drug Dosing Not Reportable eGFR 56.31 BUN/Creatinine Ratio 17.6 (10-20) Glucose 168 H (70-99(Fasting)) mg/dl Calcium 9.9 (8.6-10.3) mg/dl Total Bilirubin 0.4 (0.2-1.0) mg/dl AST 16 (13-39) U/L ALT 7 (7-52) U/L Alkaline Phosphatase 56 (34-104) U/L Troponin I High Sens 492.5 H* 4103.6 H* D (0-14) pg/ml B-Natriuretic Peptide 179 H (0-100) pg/ml Total Protein 7.9 (6.0-8.3) gm/dl Albumin 4.6 (3.4-5.0) gm/dl Globulin 3.3 (2.5-4.0) gm/dl Albumin/Globulin Ratio 1.4 (0.9-2) Lipase 33 (11-82) U/L Administered Medications Heparin Sodium/Dextrose (Heparin 82515 Unit/500 Ml D5w) 25,000 units in 500 mls @ 0.02 mls/hr IV .Q24H ALEJANDRA; Protocol Stop: 05/08/25 17:44 Last Admin: 04/08/25 18:16 Dose: 600 units/hr, 12 mls/hr Documented By: ASHTYN Co-signed By: QGV Nitroglycerin (Nitroglycerin Sl 0.4 Mg/Tab Tab) 0.4 mg SL Q5M PRN PRN Reason: Chest Pain Stop: 05/08/25 15:35 Last Admin: 04/08/25 16:07 Dose: 0.4 mg Documented By: Admin: 04/08/25 16:02 Dose: 0.4 mg Documented By: Admin: 04/08/25 15:49 Dose: 0.4 mg Documented By: ASHTYN Discontinued Medications Al Hydrox/Mg Hydrox/Simethicone (Aluminum/Magnesium Susp 30 Ml Udc) 30 ml PO NOW STA Stop: 04/08/25 15:46 Last Admin: 04/08/25 15:49 Dose: 30 ml Documented By: ASHTYN Aspirin (Aspirin Chew 324 Mg) 324 mg PO NOW STA Stop: 04/08/25 15:37 Last Admin: 04/08/25 15:48 Dose: 324 mg Documented By: ASHTYN Atorvastatin Calcium (Atorvastatin 40 Mg Tab) 80 mg PO ONE ONE Stop: 04/08/25 18:16 Last Admin: 04/08/25 18:52 Dose: 80 mg Documented By: ASHTYN Diazepam (Diazepam Inj 5 Mg/Ml 2 Ml Carp) 2 mg IV NOW ONE Stop: 04/08/25 16:22 Last Admin: 04/08/25 16:34 Dose: Not Given Documented By: ASHTYN Fentanyl Citrate (Fentanyl Citrate Pf 100 Mcg/2 Ml Vial) 50 mcg IV NOW ONE Stop: 04/08/25 16:23 Last Admin: 04/08/25 16:34 Dose: 50 mcg Documented By: ASHTYN Heparin Sodium (Porcine) (Heparin Sod (Porcine) 1000 Unit/Ml) 1 units IV NOW ONE Stop: 04/08/25 17:45 Last Admin: 04/08/25 18:15 Dose: 3,000 units Documented By: ASHTYN Co-signed By: QGV Heparin Sodium/Dextrose (Heparin Iv Adult Wt-Based Low-Dose W/ Initial Bolus Protocol) 1 each IV NOW STA; Protocol Stop: 04/08/25 17:30 Last Admin: 04/08/25 18:16 Dose: Not Given Documented By: ASHTYN Famotidine (Pepcid 20mg Iv Push) 20 mg in 5 mls @ 2.5 mls/min IV NOW STA Stop: 04/08/25 15:46 Last Admin: 04/08/25 15:50 Dose: 2.5 mls/min Documented By: ASHTYN Metoprolol Tartrate (Metoprolol Tartrate 25 Mg Tab) 12.5 mg PO ONE ONE Stop: 04/08/25 18:16 Last Admin: 04/08/25 18:51 Dose: 12.5 mg Documented By: ASHTYN Imaging Data Radiologist's Impression: Chest X-Ray 04/08/25 15:21 SINGLE VIEW CHEST CLINICAL HISTORY: Chest pain FINDINGS: An AP, portable, upright chest radiograph is compared to study dated 07/30/2024. The heart is top normal for projection noting atherosclerotic calcification of the thoracic aorta. Chronic interstitial thickening is similar to previous. Scarring/atelectasis is noted at the lung bases. No airspace consolidation or large pleural effusion is identified. No pneumothorax is seen. The skeletal structures are osteopenic. The bony thorax is grossly intact. IMPRESSION: No acute cardiopulmonary abnormality is identified. ACT 112: Negative or not required by law. Electronically signed by: David Ramos M.D. 04/08/2025 3:59 PM Discharge Plan Visit Data Chief Complaint: Cardiac Assessment Stated Complaint: CHEST PAIN, HTN, PALE SKIN, WEAKNESS, NAUSEA ED Provider: Betito Wan Discharge Problem: Unstable angina, Non-ST elevation DE (NSTEMI) Patient Disposition: Admitted As Inpatient Condition: Serious Forms Stand Alone Forms: [facility] [employer] Prescriptions Prescriptions: No Action lisinopril 20 mg tablet 20 mg PO DAILY Qty: 30 2RF turmeric 400 mg capsule 400 mg PO Q2D cyanocobalamin (vitamin B-12) 1,000 mcg tablet 1,000 mcg PO DAILY diclofenac sodium [Voltaren Arthritis Pain] 1 % gel 2 g topical QID Rx Instructions: apply to single elbow, wrist or hand; for hand includes palm/fingers/back of hand cholecalciferol (vitamin D3) 125 mcg (5,000 unit) capsule 125 mcg PO DAILY polyvinyl alcohol 1.4 % Drops 1 drp OPB BID PRN (Reason: Dry Eyes) loratadine [Claritin] 10 mg Tablet 10 mg PO QAM acetaminophen 500 mg Tablet 1,000 mg PO Q8H PRN (Reason: pain) Qty: 60 0RF zinc acetate 50 mg (zinc) Capsule 50 mg PO BID Lactobacillus acidophilus 10 billion cell Capsule 10,000 mmu cells PO DAILY Referrals Referrals: Ninfa Bender DO [Primary Care Provider] -
[2025-04-08] MEDS: ASPIRIN CHEW 324 MG PO STA (15:48)
[2025-04-08 15:49] LABS: Hematocrit (blood only) 36.1 % (37.0-47.0); Hemoglobin 11.8 g/dl (12.0-16.0); Immature Granulocytes # (auto) 0.01 K/uL (0.01-0.20); Immature Granulocytes % (auto) 0.2 %; Mean Corpuscular Hemoglobin 30.0 pg (25.0-34.0); Mean Corpuscular Volume 91.9 fL (80.0-100.0); Platelet Count 273 K/uL (130-400); RDW Standard Deviation 46.1 fL (36.4-46.3); Red Blood Count 3.93 M/uL (4.20-5.40); White Blood Count 5.51 K/ul (4.8-10.8)
[2025-04-08] MEDS: NITROGLYCERIN SL 0.4 MG/TAB TAB SL PRN (15:49)
[2025-04-08] MEDS: ALUMINUM/MAGNESIUM SUSP 30 ML UDC PO STA (15:49)
[2025-04-08] MEDS: FAMOTIDINE 20MG IV PUSH 20 MG/5 ML SYR IV STA (15:50)
--- NOTE | 2025-04-08 16:00 | XRay Report ---
SINGLE VIEW CHEST CLINICAL HISTORY: Chest pain FINDINGS: An AP, portable, upright chest radiograph is compared to study dated 07/30/2024. The heart is top normal for projection noting atherosclerotic calcification of the thoracic aorta. Chronic inters titial thickening is similar to previous. Scarring/atelectasis is noted at the lung bases. No airspac e consolidation or large pleural effusion is identified. No pneumothorax is seen. The skeletal struct ures are osteopenic. The bony thorax is grossly intact. IMPRESSION: No acute cardiopulmonary abnormality is identified. ACT 112: Negative or not required by law. Electronically signed by: David Ramos M.D. 04/08/2025 3:59 PM
[2025-04-08 16:05] LABS: Alanine Aminotransferase 7 U/L (7-52); Albumin Globulin Ratio 1.4 (0.9-2); Albumin Level 4.6 gm/dl (3.4-5.0); Alkaline Phosphatase 56 U/L (34-104); Anion Gap 11 (3-11); Bilirubin,Total 0.4 mg/dl (0.2-1.0); Blood Urea Nitrogen 18 mg/dl (6-23); Calcium 9.9 mg/dl (8.6-10.3); Carbon Dioxide 22 mmol/L (21-32); Chloride 106 mmol/L (98-107); Globulin 3.3 gm/dl (2.5-4.0); Glucose 168 mg/dl (70-99(Fasting)); Lipase 33 U/L (11-82); Potassium 3.7 mmol/L (3.5-5.1); Sodium 139 mmol/L (136-145); Total Protein 7.9 gm/dl (6.0-8.3)
[2025-04-08] MEDS: HEPARIN SOD (PORCINE) 1000 UNIT/ML IV ONE ×2 (18:15→21:11)
[2025-04-08] MEDS: HEPARIN 25000 UNIT/500 ML D5W 25,000 UNITS/500 ML BAG IV SCH (18:16)
[2025-04-08] MEDS: Heparin IV Adult Wt-Based Low-Dose w/ INITIAL Bolus Protocol IV STA (18:16)
--- NOTE | 2025-04-08 18:23 | History & Physical Report ---
Date of Service April 08, 2025 Assessment & Plan (1) NSTEMI (non-ST elevated myocardial infarction): (2) Hypertension: (3) Scleroderma: (4) Dyslipidemia: Plan #NSTEMIsymptoms and troponin fit with NSTEMI. Lack of significant EKG changes and symptoms resolving suggest the event happened, and cath is not emergent. Med management (heparin, antiplatelet, SONYA inhibitor, nitrate, statin, morphine as needed/additional nitrate as needed), and n.p.o. after midnight with anticipated cath in the morning. Trend troponins, follow symptomsdiscussed with patient to let us know MELIZA if symptoms were to worsen (as that, combined with EKG changes or an ongoing rise in troponin, could necessitate more emergent cath). Discussed med management and secondary risk reduction. Echocardiogram ordered as well. #hypertensioncurrently chronically on lisinopril. Add metoprolol (tartrate for now, anticipate transition to succinate) follow. #Dyslipidemiastatin predominantly for NSTEMI, but her non-HDL a few years ago was almost 200even though her HDL was quite high her total was quite high as wellcheck lipid panel in the morning, but again she warrants a high intensity statin related to the SC (and less something surprising is found in the Manager Sterile Processing such as vasospasm rather than atherosclerotic coronary disease) #Raynaud's and arthritisholding diclofenac gel for now. Discussed that some of the diet changes recommended for NSTEMI may also benefit her rheumatologic condition. #Anemiamild, no acute blood loss evident. #Nonfasting hyperglycemiacheck A1c (last 1 was 5.4) #DVT prophylaxisheparin drip History of Present Illness Chief Complaint: Chest pain Primary Care Provider: Ninfa Bender DO patient is a very pleasant 79-year-old female who presents after hours of chest pain. She had gone out to lunch with a friend and just sat down. Not really even started to eat yet. She then got substernal pressure or heaviness that progressed into pain. She felt like she had to leavewent home. Thought it might be indigestion and drank some soda as well as peppermintit continued to worsen. Eventually she came to the ER for further evaluation. Now the pain is significantly lessshe notes that if it was a 10 before it is a 23 now. She feels much better overall. Found to have a troponin elevation of about 500. Allergies Allergy/AdvReac Type Severity Reaction Status Date / Time latex AdvReac Mild mild Verified 01/27/25 09:27 redness Home Medications Medication Instructions Recorded Confirmed Type loratadine 10 mg tablet (Claritin) 10 mg PO QAM 02/19/20 01/27/25 History polyvinyl alcohol 1.4 % eye drops 1 drp OPB BID PRN Dry Eyes 04/21/20 01/27/25 History zinc 50 mg tablet 50 mg PO BID 04/21/20 01/27/25 History acetaminophen 500 mg tablet 1,000 mg (2 x 500 mg) PO Q8H PRN 04/24/20 01/27/25 Rx pain #60 tabs docusate sodium 100 mg capsule 100 mg PO BID #30 caps 05/06/20 01/27/25 Rx Lactobacillus acidophilus 10 mg PO DAILY 07/01/24 01/27/25 History (Acidophilus capsule) cyanocobalamin (vitamin B-12) 1,000 mcg PO DAILY 07/01/24 01/27/25 History 1,000 mcg tablet diclofenac sodium 1 % topical gel 2 g topical QID 07/01/24 01/27/25 History (Voltaren Arthritis Pain) turmeric 400 mg capsule mg PO 07/01/24 01/27/25 History cholecalciferol (vitamin D3) 125 125 mcg PO DAILY 12/30/24 01/27/25 History mcg (5,000 unit) capsule lisinopril 20 mg tablet 20 mg PO DAILY #30 tabs 03/30/25 Rx Past Med/Surg History Problem List (Updated 04/08/25 @ 18:22 by Lam Villasenor DO) Dyslipidemia NSTEMI (non-ST elevated myocardial infarction) Hypertension Scleroderma Arthralgia Vitamin D deficiency Seasonal allergies Medical History Ankle fracture RT Encounter for pre-operative examination Arthritis Kidney cysts benign Surgical History History of open reduction and internal fixation (ORIF) procedure right ankle 04/23/20 History of cataract extraction RT/LEFT History of anesthesia reaction "slow to wake" History of colonoscopy [place] teeth removed History of tonsillectomy Family History Father Family history of diabetes mellitus Rheumatoid arthritis Brother Family history of diabetes mellitus Grandfather Family history of diabetes mellitus Rheumatoid arthritis Aunt Lupus (systemic lupus erythematosus) Social History Smoking Status: Former smoker Tobacco Type: Cigarettes Second Hand Exposure: Yes (IN THE PAST); Do You Dip or Chew Tobacco: No; Hx Alcohol Use: Yes Alcohol type: beer, wine and hard liquor Hx Substance Use: No Preferred Language: Yoruba Communication Ability: Effective Surg Physician Asst Required: No Beliefs That Will Affect Care: None Current Living Situation: Alone Feels Safe at Home: Yes Assistive Devices: Walker Review of Systems Review of Systems: All systems reviewed & are unremarkable except as noted in HPI & below Physical Exam Physical Exam: In general she is awake alert oriented pleasant no distress. HEENT normocephalic atraumatic mucous membranes moist. Cardio regular without rubs murmurs or gallops, lungs are clear with no rales rhonchi or wheezes, breathing unlabored no accessory muscle use good effort. abdomen is soft nondistended nontender no masses organomegaly. Extremities are without cyanosis or clubbing. Neuro shows cranial nerves II through XII are grossly intact gross motor and sensory are intact. EKG with may be very subtle but not significant sb-lateral ST depressionantero-, no significant ST elevations or depressions. Chest x-ray without active disease. Other labs noted. Of note her total cholesterol a few years ago was 280 with an LDL of 169 and HDL of 87, her A1c then was 5.4. Results & Data Results & Data Vital Signs (Past 12 Hours) Vital Signs Temp Pulse Pulse Resp BP BP Pulse Ox 04/08/25 17:00 80 16 97 04/08/25 17:00 137/74 04/08/25 16:30 85 16 97 04/08/25 16:30 141/85 H 04/08/25 16:24 87 16 95 04/08/25 16:16 86 04/08/25 16:04 89 16 158/96 H 96 04/08/25 15:18 97.9 F 84 24 200/100 H 99 O2 Del Method 04/08/25 17:00 04/08/25 17:00 04/08/25 16:30 04/08/25 16:30 04/08/25 16:24 04/08/25 16:16 04/08/25 16:04 Room Air 04/08/25 15:18 Room Air Code Status & VTE Plan VTE Prophylaxis Plan VTE Prophylaxis will be ordered: Yes PG Care Time/CCT Total # of Minutes Spent Total Time Spent with Patient: Total time spent is greater than 50% in coordination of care (as documented) at patient's floor/unit and/or counseling patient: Coding Level of Care Code 59998 INT INP/OBS CARE 3/75MIN Diagnoses NSTEMI (non-ST elevated myocardial infarction) I21.4 Hypertension, unspecified type I10 Hypertension type: unspecified Scleroderma M34.9 Dyslipidemia E78.5 (2) Hypertension Hypertension type: unspecified Qualified Code(s): I10 - Essential (primary) hypertension
[2025-04-08 18:36] LABS: INR 1.0 (0.9-1.1); Partial Thromboplastin Time 28 Seconds (21-31); Prothrombin Time 10.7 Seconds (9.0-12.0)
[2025-04-08] MEDS: METOPROLOL TARTRATE 25 MG TAB PO ONE (18:51)
[2025-04-08] MEDS: ATORVASTATIN 40 MG TAB PO ONE (18:52)
[2025-04-08] MEDS ORDERED: MAGNESIUM HYDROXIDE SUSP 30 ML UDC PO PRN (20:34)
[2025-04-08] MEDS ORDERED: POLYETHYLENE (MIRALAX) 17 GM PACK PO PRN (20:34)
[2025-04-08] MEDS ORDERED: MoRPHine SULFATE 2 MG/ML CARP IV PRN (20:34)
[2025-04-08] MEDS ORDERED: ONDANSETRON INJ 2 MG/ML 2 ML VIAL IV PRN (20:34)
[2025-04-08] MEDS ORDERED: ALUMINUM/MAGNESIUM SUSP 30 ML UDC PO PRN (20:34)
--- NOTE | 2025-04-08 20:55 | Emergency Department Note ---
ED Visit Note I was asked by my attending, Dr. Wan to obtain cardiology consultation for this patient during a time of critical needs for another patient, as to not delay this patient's care. Consultation was obtained from Dr. Stewart, who based on patient history, presentation, and workup, meets criteria for NSTEMI. Dr. Stewart recommended weight based low-dose heparin infusion with bolus, and admission to medicine. Orders were placed per her recommendation with additional labwork obtained prior to initiation of infusion. Dr. Wan was notified of Dr. Stewart's recommendation, and plan of care. .
[2025-04-08] MEDS ORDERED: ARTIFICIAL TEARS OP PRN (20:57)
[2025-04-08] MEDS: METOPROLOL TARTRATE 25 MG TAB PO SCH (22:43)
[2025-04-09] MEDS: NITROGLYCERIN 2% OINTMENT 30GM TUBE EXT SCH (00:08)
[2025-04-09 01:22] LABS: ANTI-Xa, UFH(UnfractionatedHep 0.90 IU/ml (0.3-0.7)
--- NOTE | 2025-04-09 08:21 | Electrocardiogram Report ---
Test Reason : Blood Pressure : */* mmHG Vent. Rate : 79 BPM Atrial Rate : 79 BPM P-R Int : 182 ms QRS Dur : 62 ms QT Int : 380 ms P-R-T Axes : 96 60 55 degrees QTcB Int : 435 ms Normal sinus rhythm Anteroseptal infarct , age undetermined Nonspecific Inferior ST depression Abnormal ECG When compared with ECG of 14-Sep-1997 06:08, Anteroseptal infarct is new Confirmed by Muna Alfredo ([id number]) on 04/09/2025 8:20:56 AM Referred By: Confirmed By: Muna Alfredo
--- NOTE | 2025-04-09 08:23 | Electrocardiogram Report ---
Test Reason : Blood Pressure : */* mmHG Vent. Rate : 84 BPM Atrial Rate : 84 BPM P-R Int : 186 ms QRS Dur : 78 ms QT Int : 392 ms P-R-T Axes : 61 22 69 degrees QTcB Int : 463 ms Normal sinus rhythm Low voltage QRS Cannot rule out Anteroseptal infarct (cited on or before Inferolateral diffuse ST-T changes Abnormal ECG When compared with ECG of 08-Apr-2025 15:26, (unconfirmed) No significant change was found Confirmed by Muna Alfredo ([id number]) on 04/09/2025 8:23:21 AM Referred By: REFERRED SELF Confirmed By: Muna Alfredo
--- NOTE | 2025-04-09 08:25 | Cardiology Consultation ---
Date of Consultation April 09, 2025 History of Present Illness Attending Physician: Adrian Verma Allergies Allergy/AdvReac Type Severity Reaction Status Date / Time latex AdvReac Mild mild Verified 04/08/25 19:00 redness Home Medications Medication Instructions Recorded Confirmed Type loratadine 10 mg tablet (Claritin) 10 mg PO QAM 02/19/20 04/08/25 History polyvinyl alcohol 1.4 % eye drops 1 drp OPB BID PRN Dry Eyes 04/21/20 04/08/25 History acetaminophen 500 mg tablet 1,000 mg (2 x 500 mg) PO Q8H PRN 04/24/20 04/08/25 Rx pain #60 tabs cyanocobalamin (vitamin B-12) 1,000 mcg PO DAILY 07/01/24 04/08/25 History 1,000 mcg tablet diclofenac sodium 1 % topical gel 2 g topical QID 07/01/24 04/08/25 History (Voltaren Arthritis Pain) turmeric 400 mg capsule 400 mg PO Q2D 07/01/24 04/08/25 History cholecalciferol (vitamin D3) 125 125 mcg PO DAILY 12/30/24 04/08/25 History mcg (5,000 unit) capsule lisinopril 20 mg tablet 20 mg PO DAILY #30 tabs 03/30/25 04/08/25 Rx Lactobacillus acidophilus 10 10,000 mmu cells PO DAILY 04/08/25 04/08/25 History billion cell capsule zinc acetate 50 mg (zinc) capsule 50 mg PO BID 04/08/25 04/08/25 History Patient History Medical History Ankle fracture RT Encounter for pre-operative examination Arthritis Kidney cysts benign Surgical History History of open reduction and internal fixation (ORIF) procedure right ankle 04/23/20 History of cataract extraction RT/LEFT History of anesthesia reaction "slow to wake" History of colonoscopy Parachute teeth removed History of tonsillectomy Family History Father Family history of diabetes mellitus Rheumatoid arthritis Brother Family history of diabetes mellitus Grandfather Family history of diabetes mellitus Rheumatoid arthritis Aunt Lupus (systemic lupus erythematosus) Social History Smoking Status: Unknown if ever smoked Tobacco Type: Cigarettes Second Hand Exposure: Yes (IN THE PAST); Do You Dip or Chew Tobacco: No; Hx Alcohol Use: Yes Alcohol type: beer, wine and hard liquor Hx Substance Use: No Preferred Language: Serbian Communication Ability: Effective Mixer Tender Required: No Beliefs That Will Affect Care: None Current Living Situation: Alone Other Information That Helps Us Care for You: No Feels Safe at Home: Yes Safety Concerns: Feels Safe At This Time Assistive Devices: Denture - Lower Review of Systems Review of Systems: All systems reviewed & are unremarkable except as noted in HPI & below Results & Data Vital Signs (Past 12 Hours) Vital Signs Temp Pulse Pulse Resp BP Pulse Ox O2 Del Method 04/09/25 02:58 36.5 C 67 20 94/60 L 95 Room Air 04/08/25 22:15 36.8 C 74 16 155/94 H 98 Room Air 04/08/25 21:21 80 18 97 Room Air Laboratory Results Abnormal lab results 04/08/25 04/08/25 04/08/25 Range/Units 15:33 18:09 22:37 RBC 3.93 L (4.20-5.40) M/uL Hgb 11.8 L (12.0-16.0) g/dl Hct 36.1 L (37.0-47.0) % MPV 9.1 L (9.4-12.4) fL Heparin Anti-Xa, Unfract (0.3-0.7) IU/ml Glucose 168 H (70-99(Fasting)) mg/dl Troponin I High Sens 492.5 H* 4103.6 H* D 4092.7 H* (0-14) pg/ml B-Natriuretic Peptide 179 H (0-100) pg/ml 04/09/25 Range/Units 00:29 RBC (4.20-5.40) M/uL Hgb (12.0-16.0) g/dl Hct (37.0-47.0) % MPV (9.4-12.4) fL Heparin Anti-Xa, Unfract 0.90 H* (0.3-0.7) IU/ml Glucose (70-99(Fasting)) mg/dl Troponin I High Sens (0-14) pg/ml B-Natriuretic Peptide (0-100) pg/ml Medications Administered Current Inpatient Medications Acetaminophen (Acetaminophen 325 Mg Tab) 650 mg PO Q4H PRN PRN Reason: Pain or Fever Stop: 05/08/25 20:33 Al Hydrox/Mg Hydrox/Simethicone (Aluminum/Magnesium Susp 30 Ml Udc) 15 ml PO Q4H PRN PRN Reason: Dyspepsia Stop: 05/08/25 20:33 Artificial Tears (Artificial Tears) 1 drops OP BID PRN PRN Reason: Dry Eyes Stop: 05/08/25 20:56 Aspirin (Aspirin 81 Mg Ectab) 81 mg PO QAM [facility] Stop: 05/09/25 08:59 Atorvastatin Calcium (Atorvastatin 40 Mg Tab) 80 mg PO QAM [facility] Stop: 05/09/25 08:59 Heparin Sodium/Dextrose (Heparin 75140 Unit/500 Ml D5w) 25,000 units in 500 mls @ 9 mls/hr IV .Q24H ALEJANDRA; Protocol Stop: 05/08/25 17:44 Last Titration: 04/09/25 02:25 Dose: 450 units/hr, 9 mls/hr Lisinopril (Lisinopril 20 Mg Tab) 20 mg PO DAILY [facility] Stop: 05/09/25 08:59 Loratadine (Loratadine 10 Mg Tab) 10 mg PO QAM [facility] Stop: 05/09/25 08:59 Magnesium Hydroxide (Magnesium Hydroxide Susp 30 Ml Udc) 30 ml PO Q12H PRN PRN Reason: Constipation Stop: 05/08/25 20:33 Metoprolol Tartrate (Metoprolol Tartrate 25 Mg Tab) 12.5 mg PO BID [facility] Stop: 05/08/25 20:59 Last Admin: 04/08/25 22:43 Dose: 12.5 mg Morphine Sulfate (Morphine Sulfate 2 Mg/Ml Carp) 2 mg IV Q30M PRN PRN Reason: Chest Pain Stop: 04/22/25 20:33 Nitroglycerin (Nitroglycerin Sl 0.4 Mg/Tab Tab) 0.4 mg SL Q5M PRN PRN Reason: Chest Pain Stop: 05/08/25 15:35 Last Admin: 04/08/25 16:07 Dose: 0.4 mg Nitroglycerin (Nitroglycerin 2% Ointment 30gm Tube) 1 inch EXT Q6 ALEJANDRA Stop: 05/09/25 00:00 Last Admin: 04/09/25 06:25 Dose: 1 inch Ondansetron HCl (Ondansetron Inj 2 Mg/Ml 2 Ml Vial) 4 mg IV Q6H PRN PRN Reason: Nausea Stop: 05/08/25 20:33 Polyethylene Glycol (Polyethylene (Miralax) 17 Gm Pack) 17 gm PO DAILY PRN PRN Reason: Constipation Stop: 05/08/25 20:33
[2025-04-09 08:44] LABS: Hematocrit (blood only) 31.9 % (37.0-47.0); Hemoglobin 10.4 g/dl (12.0-16.0); Immature Granulocytes # (auto) 0.02 K/uL (0.01-0.20); Immature Granulocytes % (auto) 0.4 %; Mean Corpuscular Hemoglobin 30.3 pg (25.0-34.0); Mean Corpuscular Volume 93.0 fL (80.0-100.0); Platelet Count 227 K/uL (130-400); RDW Standard Deviation 47.1 fL (36.4-46.3); Red Blood Count 3.43 M/uL (4.20-5.40); White Blood Count 5.38 K/ul (4.8-10.8)
[2025-04-09 08:57] LABS: Hemoglobin A1C 5.5 % (4.5-5.6)
[2025-04-09 09:01] LABS: Anion Gap 5.0 (3-11); Blood Urea Nitrogen 18.0 mg/dl (6-23); Calcium 9.0 mg/dl (8.6-10.3); Carbon Dioxide 28.0 mmol/L (21-32); Chloride 108.0 mmol/L (98-107); Cholesterol 193.0 mg/dl (0-200); Creatinine Clr Calc Pharmacy 38.1 ml/min; Glucose 98.0 mg/dl (70-99(Fasting)); HDL Cholesterol 71.0 mg/dl; Potassium 4.2 mmol/L (3.5-5.1); Sodium 141.0 mmol/L (136-145); Triglycerides 99.0 mg/dl (0-150)
[2025-04-09 09:10] LABS: ANTI-Xa, UFH(UnfractionatedHep 0.22 IU/ml (0.3-0.7)
--- NOTE | 2025-04-09 09:12 | Hospitalist Progress Note ---
Date of Service April 09, 2025 Assessment & Plan (1) Non-ST elevation [place] (NSTEMI): (2) Dyslipidemia: (3) Hypertension: (4) HFrEF (heart failure with reduced ejection fraction): Plan Anastasiya is a pleasnt 79yo lady with PMH of HTN and HLD who presented to the ED with one day history of chest pain that did not improve. Initial workup revealed negative ECG and elevated troponin levels. She is currently being managed for NSTEMI. TTE: EF 35-40%, anterior wall and septal akinesis, borderline left ventricular hypertrophy #NSTEMI symptoms and troponin fit with NSTEMI Troponin: ~500>4103.6>4092.7>1926 -s/p 3 stents during catheterization -Ticagrelor 90mg BID -Aspirin 81mg BID -Metoprolol Titrate 12.5mg BID -Lisinopril 20mg qdaily -Atorvastatin 80mg qdaily -Nitroglycerin prn -CBC and BMP in AM -hopeful for discharge tomorrow #Heart Failure with Reduced Ejection Fraction -meds as above -discussed with patient #hypertension currently chronically on lisinopril. Add metoprolol (tartrate for now, anticipate transition to succinate) follow. #Dyslipidemia -atorvastatin 80mg daily #Raynaud's and arthritisholding diclofenac gel for now. #Anemiamild, no acute blood loss evident. #Nonfasting hyperglycemia: A1C 5.5 #DVT prophylaxis: none as pt received Brilinta post-cath with hopeful discharge tomorrow Admission and Anticipated Discharge Date Admission Date: April 08, 2025 Supervising Physician Co-Signing Physician Notes I personally examined the patient and verified all bates points of history and e xam, discussed case, and agree with decision making with Dr Rubio PGY 1 Patient admitted for NSTEMI. Patient had a cardiac cath and required 3 ISA. Patient loaded with brillinta ad placed on ASA no new problems no new needs identified. Vitals noted, Sitting in his room, no distress. HEENT normocephalic atraumatic mucous membranes moist. Breathing unlabored no accessory muscle use good effort. Skin without rashes pallor or icterus. Neuro without focal deficits. Otherwise as above, Discharge in AM. Subjective No overnight events. Pt seen and examined this morning at bedside. Today she feels much better and is patiently awaiting the echo anc cath. She experiences occasional palpitations but not as severe as yesterday. Denies chest pain, SOB, headaches, vision changes, lightheadedness, dizziness, N/V/C/D, abdominal pain, edmea, and complaints. Review of Systems Review of Systems: per HPI Physical Exam Physical Exam: GA: well groomed, well nourished in no apparent distress. AAOx3 HEENT: head normocephalic, atraumatic. EOMI. No conjunctival pallor RESP: vesicular breath sounds b/l. No wheezes, rhonchi, or rales CARDIOVASCULAR: S1 and S2 heard. No murmurs, rubs, or gallops. Radial pulses 2+ b/l GI: Normoactive bowel sounds, no tenderness or masses felt to palpation MSK: no gross abnormalities or focal deficits SKIN: warm, dry, no edema PSYCH: appropriate mood and affect NEURO: no focal deficits Results & Data Results & Data Vital Signs (Past 12 Hours) Vital Signs Temp Pulse Pulse Resp BP Pulse Ox O2 Del Method 04/09/25 06:58 36.7 C 70 18 157/70 H 98 Room Air 04/09/25 02:58 36.5 C 67 20 94/60 L 95 Room Air 04/08/25 22:15 36.8 C 74 16 155/94 H 98 Room Air 04/08/25 21:21 80 18 97 Room Air Resident Activity Tracking Resident Involvement: Resident Care Provided Care Provided: Adult Hospital Medicine (3) Hypertension Hypertension type: unspecified Qualified Code(s): I10 - Essential (primary) hypertension
[2025-04-09] MEDS: LORATADINE 10 MG TAB PO SCH (09:28)
[2025-04-09] MEDS: ASPIRIN 81 MG ECTAB PO SCH (09:29)
[2025-04-09] MEDS: ATORVASTATIN 40 MG TAB PO SCH (09:29)
--- NOTE | 2025-04-09 10:23 | Pre Anesthesia Assessment ---
Date of Service April 09, 2025 Pre Sedation Assessment Vital Signs Temp Pulse Pulse Resp BP BP Pulse Ox 04/09/25 09:50 75 16 156/77 H 95 04/09/25 09:33 75 136/75 04/09/25 06:58 36.7 C 70 18 157/70 H 98 04/09/25 02:58 36.5 C 67 20 94/60 L 95 04/08/25 22:15 36.8 C 74 16 155/94 H 98 04/08/25 21:21 80 18 97 04/08/25 20:12 79 15 145/89 H 98 04/08/25 20:12 79 04/08/25 19:03 74 16 155/92 H 97 04/08/25 17:00 80 16 97 04/08/25 17:00 137/74 04/08/25 16:30 85 16 97 04/08/25 16:30 141/85 H 04/08/25 16:24 87 16 95 04/08/25 16:16 86 04/08/25 16:04 89 16 158/96 H 96 04/08/25 15:18 36.6 C 84 24 200/100 H 99 O2 Del Method 04/09/25 09:50 Room Air 04/09/25 09:33 04/09/25 06:58 Room Air 04/09/25 02:58 Room Air 04/08/25 22:15 Room Air 04/08/25 21:21 Room Air 04/08/25 20:12 Room Air 04/08/25 20:12 04/08/25 19:03 Room Air 04/08/25 17:00 04/08/25 17:00 04/08/25 16:30 04/08/25 16:30 04/08/25 16:24 04/08/25 16:16 04/08/25 16:04 Room Air 04/08/25 15:18 Room Air Cardiovascular RRR, no murmur, no edema Respiratory normal respiratory effort, lungs clear to auscultation Pre-Sedation Airway Assessment Smoking Status: Unknown if ever smoked Short, Thick Neck: No Thyromental Distance: < 3.5 Finger Breadths Oral Cavity: + Dentures Mallampati Class: II ASA: ASA4 NPO Status Date of Last Intake of Fluids: 04/08/25 Time of Last Intake of Fluids: 13:00 Date of Last Intake of Solid Food: 04/08/25 Time of Last Intake of Solid Foods: 13:00 Notes The planned sedation has been discussed with the patient. Informed Consent was obtained. I have identified the patient, determined the appropriateness of sedation and have assessed the patient immediately prior to the procedure. All medicine(s) and interventions are by my order.
[2025-04-09] MEDS: NITROGLYCERIN/D5W 100MCG/ML 20ML SYR ONE (10:33)
[2025-04-09] MEDS: MIDAZOLAM HCL 1 MG/ML 2ML VIAL ONE ×2 (11:30→11:31)
[2025-04-09] MEDS: HEPARIN (PORCINE) 1000 UNIT/ML 10 ML (CATH LAB USE ONLY) ONE (11:30)
[2025-04-09] MEDS: TICAGRELOR 90 MG TAB ONE (11:33)
[2025-04-09] MEDS: OPTIRAY 350 ONE (11:35)
--- NOTE | 2025-04-09 11:44 | Post Anesthesia Assessment ---
Date of Service April 09, 2025 Post Sedation Assessment Vital Signs Temp Pulse Pulse Resp BP BP Pulse Ox 04/09/25 09:50 75 16 156/77 H 95 04/09/25 09:33 75 136/75 04/09/25 06:58 36.7 C 70 18 157/70 H 98 04/09/25 02:58 36.5 C 67 20 94/60 L 95 04/08/25 22:15 36.8 C 74 16 155/94 H 98 04/08/25 21:21 80 18 97 04/08/25 20:12 79 15 145/89 H 98 04/08/25 20:12 79 04/08/25 19:03 74 16 155/92 H 97 04/08/25 17:00 80 16 97 04/08/25 17:00 137/74 04/08/25 16:30 85 16 97 04/08/25 16:30 141/85 H 04/08/25 16:24 87 16 95 04/08/25 16:16 86 04/08/25 16:04 89 16 158/96 H 96 04/08/25 15:18 36.6 C 84 24 200/100 H 99 O2 Del Method 04/09/25 09:50 Room Air 04/09/25 09:33 04/09/25 06:58 Room Air 04/09/25 02:58 Room Air 04/08/25 22:15 Room Air 04/08/25 21:21 Room Air 04/08/25 20:12 Room Air 04/08/25 20:12 04/08/25 19:03 Room Air 04/08/25 17:00 04/08/25 17:00 04/08/25 16:30 04/08/25 16:30 04/08/25 16:24 04/08/25 16:16 04/08/25 16:04 Room Air 04/08/25 15:18 Room Air Recovery Score Activity: Moves 4 extremities Respiration: Deep Breath/Cough Circulation: +/-20% PreAnes Value Consciousness: Fully Awake Oxygen Saturation: > 92% On Room Air Discharge Sedation Level of Care: Fast Track Phase II Post Sedation Plan On clinical assessment, the patient appears to have tolerated the sedation without complications. Patient is recovering as anticipated. Patient will continue to be monitored by nursing and may be discharged when sedation discharge criteria are met per below protocol. Upon Completions of procedure up to 15 minutes continue every 5 minute vital signs and the P.A.R. score; then discharge to a Phase I or Fast Track to Phase II per the following guidelines: * Discharge Patient to appropriate Phase II area if PAR is 8 or greater or return to pre- procedure baseline. The post - procedure orders will be as directed. * If PAR score is less than 8 or not return to pre-procedure baseline then patient will follow Phase I monitoring till PAR is reached for Phase II. The Phase I may be done in procedure room or may call to secure a Phase I area. * If naloxone or flumazenil are used for reversal, hold in Phase I for continued monitoring from when last reversal dose was given for a minimum of 60 minutes or longer pending the nurse and/or physician discretion of patient condition before discharge to Phase II. Please call the Sedation Physician to re-evaluate and complete post-note for discharge to Phase II area. Do NOT discharge from procedure sedation or Phase 1 until post- sedation evaluation note is complete by procedure /sedation MD Sedation Discharge Instructions to be given to the patient at discharge to home. [facility] Procedure Codes (Charges) Indication for Procedure Indication for procedure: Non-ST elevation [place]
[2025-04-09] MEDS: ACETAMINOPHEN 325 MG TAB PO PRN (19:29)
[2025-04-09] MEDS: TICAGRELOR 90 MG TAB PO SCH (20:26)
[2025-04-10 00:29] VITALS: O2SAT 97
[2025-04-10] MEDS: FAMOTIDINE 20MG IV PUSH 20 MG/5 ML SYR IV ONE (01:00)
[2025-04-10 01:01] LABS: Hematocrit (blood only) 30.2 % (37.0-47.0); Hemoglobin 10.2 g/dl (12.0-16.0); Immature Granulocytes # (auto) 0.01 K/uL (0.01-0.20); Immature Granulocytes % (auto) 0.2 %; Mean Corpuscular Hemoglobin 30.7 pg (25.0-34.0); Mean Corpuscular Volume 91.0 fL (80.0-100.0); Platelet Count 238 K/uL (130-400); RDW Standard Deviation 46.1 fL (36.4-46.3); Red Blood Count 3.32 M/uL (4.20-5.40); White Blood Count 6.63 K/ul (4.8-10.8)
[2025-04-10 01:21] LABS: Alanine Aminotransferase 7.0 U/L (7-52); Albumin Globulin Ratio 1.6 (0.9-2); Albumin Level 3.9 gm/dl (3.4-5.0); Alkaline Phosphatase 42.0 U/L (34-104); Anion Gap 8.0 (3-11); Bilirubin,Total 0.7 mg/dl (0.2-1.0); Blood Urea Nitrogen 20.0 mg/dl (6-23); Calcium 9.0 mg/dl (8.6-10.3); Carbon Dioxide 23.0 mmol/L (21-32); Chloride 103.0 mmol/L (98-107); Creatinine Clr Calc Pharmacy 33.3 ml/min; Globulin 2.5 gm/dl (2.5-4.0); Glucose 100.0 mg/dl (70-99(Fasting)); Magnesium 1.8 mg/dl (1.7-2.4); Potassium 4.0 mmol/L (3.5-5.1); Sodium 134.0 mmol/L (136-145); Total Protein 6.4 gm/dl (6.0-8.3)
[2025-04-10 06:27] LABS: Hematocrit (blood only) 28.8 % (37.0-47.0); Hemoglobin 9.8 g/dl (12.0-16.0); Immature Granulocytes # (auto) 0.02 K/uL (0.01-0.20); Immature Granulocytes % (auto) 0.3 %; Mean Corpuscular Hemoglobin 30.9 pg (25.0-34.0); Mean Corpuscular Volume 90.9 fL (80.0-100.0); Platelet Count 215 K/uL (130-400); RDW Standard Deviation 45.5 fL (36.4-46.3); Red Blood Count 3.17 M/uL (4.20-5.40); White Blood Count 5.98 K/ul (4.8-10.8)
[2025-04-10 07:01] LABS: Anion Gap 7.0 (3-11); Blood Urea Nitrogen 19.0 mg/dl (6-23); Calcium 9.0 mg/dl (8.6-10.3); Carbon Dioxide 26.0 mmol/L (21-32); Chloride 105.0 mmol/L (98-107); Creatinine Clr Calc Pharmacy 33.7 ml/min; Potassium 4.1 mmol/L (3.5-5.1); Sodium 138.0 mmol/L (136-145)
[2025-04-10 07:57] VITALS: RESP 16; TEMP 98.2
--- NOTE | 2025-04-10 09:25 | Cardiology Progress Note ---
Date of Service April 10, 2025 Assessment & Plan (1) Non-ST elevation [place] (NSTEMI): (2) HFrEF (heart failure with reduced ejection fraction): (3) Hypertension: Plan Ms. Marinelli is chest pain free today. She should discharge with Brilinta, aspirin, metoprolol, atorvastatin and lisinopril. We reviewed that she will need to maintain DAPT for a year and that she should not interrupt these medications without talking to cardiology first in that time frame. Could consider sending her out with medication to reduce stomach acid given her episode of painful GERD last night as it made her nervous delineating between the sensation of GERD vs angina. She could also be discharged with sublingual nitro. We discussed that if her chest pain is not resolved after nitro x3 she should go to the hospital. She should also return to the hospital if she has chest pain with associated dyspnea, diaphoresis, or radiation to arms and neck. She has reduced EF which may be due to myocardial stunning. We'll recheck an echo in 3 months. We reviewed maintaining a low sodium diet and to call with heart failure symptoms such as dyspnea, weight gain, or edema. She appears euvolemic at this time. If her low EF persists after 3 months or she starts holding onto fluid we could switch her lisinopril to Entresto. Her blood pressure is better controlled is at goal today. Her goal LDL is below 55, currently she's 102. We'll recheck in a few months. Our office will arrange follow up for her in the clinic in 1-2 weeks. I recommended she walk the halls a little this morning and make sure she feels alright doing so. If so, she can be discharged from a cardiac perspective. Admission and Anticipated Discharge Date Admission Date: April 08, 2025 Subjective Ms. Marinelli had an episode of chest pain overnight last ing about an hour. It was over her right chest whereas her presenting pain was on the left. She was treated with famotidine. EKG was reportedly without ischemic changes. Her troponin continues to trend down. She is in SR on the monitor. She denies any shortness of breath or chest discomfort this morning. No edema. No orthopnea Review of Systems Review of Systems: All systems reviewed & are unremarkable except as noted in HPI & below Physical Exam Constitutional: WD/WN, vitals as above Respiratory: normal respiratory effort, lungs clear to auscultation Cardiovascular: RRR, no murmur, no edema Skin: no rashes, warm and dry Neurologic: moves all extremities and awake Psychiatric: A+Ox3, euthymic affect Results & Data Vital Signs (Past 12 Hours) Vital Signs Temp Pulse Pulse Resp BP Pulse Ox O2 Del Method 04/10/25 07:14 36.8 C 73 16 127/65 97 Room Air 04/10/25 02:57 36.7 C 70 18 100/57 L 97 Room Air 04/10/25 00:00 69 16 143/81 H 97 Room Air 04/09/25 23:23 36.6 C 72 17 114/65 96 Room Air 04/09/25 21:42 71 (3) Hypertension Hypertension type: unspecified Qualified Code(s): I10 - Essential (primary) hypertension
--- NOTE | 2025-04-10 09:58 | Discharge Summary ---
Date of Service April 10, 2025 Admission HPI Per Admitting Provider patient is a very pleasant 79-year-old female who presents after hours of chest pain. She had gone out to lunch with a friend and just sat down. Not really even started to eat yet. She then got substernal pressure or heaviness that progressed into pain. She felt like she had to leavewent home. Thought it might be indigestion and drank some soda as well as peppermintit continued to worsen. Eventually she came to the ER for further evaluation. Now the pain is significantly lessshe notes that if it was a 10 before it is a 23 now. She feels much better overall. Found to have a troponin elevation of about 500. Admission Exam Per Admitting Provider In general she is awake alert oriented pleasant no distress. HEENT normoce phalic atraumatic mucous membranes moist. Cardio regular without rubs murmurs or gallops, lungs are clear with no rales rhonchi or wheezes, breathing unlabored no accessory muscle use good effort. abdomen is soft nondistended nontender no masses organomegaly. Extremities are without cyanosis or clubbing. Neuro shows cranial nerves II through XII are grossly intact gross motor and sensory are intact. EKG with may be very subtle but not significant sb-lateral ST depressionantero-, no significant ST elevations or depressions. Chest x-ray without active disease. Other labs noted. Of note her total cholesterol a few years ago was 280 with an LDL of 169 and HDL of 87, her A1c then was 5.4. Principal Diagnosis NSTEMI Discharge Exam GA: well groomed, well nourished in no apparent distress. AAOx3 HEENT: head normocephalic, atraumatic. EOMI. No conjunctival pallor RESP: vesicular breath sounds b/l. No wheezes, rhonchi, or rales CARDIOVASCULAR: S1 and S2 heard. No murmurs, rubs, or gallops. Radial pulses 2+ b/l GI: Normoactive bowel sounds, no tenderness or masses felt to palpation MSK: no gross abnormalities or focal deficits SKIN: warm, dry, no edema PSYCH: appropriate mood and affect NEURO: no focal deficits Discharge Data Allergies Allergy/AdvReac Type Severity Reaction Status Date / Time latex AdvReac Mild mild Verified 04/08/25 19:00 redness Consultations 04/08/25 17:50 ED Decision to Admit Stat 04/08/25 20:34 Consult Cardiology Routine 04/09/25 11:45 Consult Cardiac Rehabilitation Routine 04/10/25 09:22 Consult Cardiac Rehabilitation Routine Procedures Performed Operation Date: 04/09/25 10:00 Actual Procedures s Cineradiography w/Routine Exam - Geoffrey Barnett MD, PhD p Cath, Coronaries ONLY (no LV) - Geoffrey Barnett MD, PhD p Drug Eluting Stent SGl Vessel - Geoffrey Barnett MD, PhD s POBA each ADDTL Vessel - Geoffrey Barnett MD, PhD Ordered Studies 04/09/25 09:29 CL Cath Imgs for PACS use only Stat Hospital Course (1) Non-ST elevation SC (NSTEMI): (2) Dyslipidemia: (3) Hypertension: Orion Langford is a pleasnt 79yo lady with PMH of HTN and HLD who presented to the ED with one day history of chest pain that did not improve. Initial workup revealed negative ECG and elevated troponin levels. She is currently being managed for NSTEMI. TTE: EF 35-40%, anterior wall and septal akinesis, borderline left ventricular hypertrophy #NSTEMI Troponin: ~500>4103.6>4092.7>1926>1810.9 -s/p 3 stents during catheterization -Ticagrelor 90mg BID -Aspirin 81mg qdaily -Metoprolol succinate 25mg qdaily -Lisinopril 20mg qdaily -Atorvastatin 80mg qdaily -Nitroglycerin 0.4mg q6hrs prn -stable for discharge -follow with PCP and Cardiology in 1-2 weeks outpatient -consider cardiac rehab as outpatient #Heart Failure with Reduced Ejection Fraction -possibly secondary to the NSTEMI and/or catheterization procedure -meds as above -consider repeat echo in 3 months to assess function #hypertension continue lisinopril. Added metoprolol. #Dyslipidemia -atorvastatin 80mg daily #Raynaud's and arthritisholding diclofenac gel for now. #Nonfasting hyperglycemia: A1C 5.5 Total Time Total Time Spent Total Time Spent (In Minutes): please see attending physician attestation. Discharge Plan Discharge Items Patient Disposition: Home - Self-Care Reason For Visit: NSTEMI Discharge Diagnosis: NSTEMI Condition on Discharge: Serious Activity: As commented below Non-emergency contact: Primary Care Provider Call non-emergency contact if: you have any medication questions, your symptoms worsen and your pain is unusual for you Follow-up/Referrals: Ninfa Bender DO [Primary Care Provider] - Diet: Heart Healthy and Low Sodium (2gm) Addtl Attending Provider Instructions: You came to the hospital because you had chest pain. Your workup in the hospital showed that you had a heart attack called a non-ST segment Elevated myocardial infarction, which was consistent with your lab work. You underwent an echocardiogram (image of your heart) and catheterization (procedure) that resulted in 3 stents being placed. Your echocardiogram showed that your heart is not beating as efficiently as maybe it has in the past. You were started on medications to help with the chest pain, heart attack, and your heart beating function during your stay. You may need a repeat echocardiogram in 3 months to assess how your heart is beating. You experienced some chest pain the night after your procedure and was given a medication for acid reflux which resolved your chest pain. Each day you experienced improvement in your condition. Please follow-up with your primary care doctor and Dr. Alfredo within 1-2 weeks to discuss your hospital admission. Please advance your activity as tolerated, starting slow and advancing as you feel better. Please take your new medications as prescribed below. New prescriptions already sent to your pharmacy. Please continue taking your home medications as prescribed. Avoid movements of your right arm as discussed. If you experience worsening of you symptoms or continued chest pain longer than 10 minutes, please return to the ER. New Medications: Metoprolol 25mg-take one tablet daily; take first dose tonight since you had a similar dose this morning. Then take once a day at night time starting tomorrow (04/11/25) Atorvastatin 80mg-take one tablet daily Ticagrelor 90mg-take one tablet twice a day (every 12 hours) Aspirin 81mg-take one tablet daily Nitroglycerin tablet-take one tablet sublingually once daily as needed for chest pain Famotidine 20mg-take one tablet daily as needed for heart burn symptoms Home Medications: Lisinopril 20mg-continue taking as prescribed Other medications take as prescribed Thank you for allowing us to be a part of your care. Pending Studies at Discharge: No Stand-Alone Forms: My [facility], Smoking Cessation Medications and DC Order Prescriptions: New nitroglycerin 0.4 mg tablet, sublingual 0.4 mg sublingual ONCE Qty: 10 0RF aspirin 81 mg capsule 81 mg PO DAILY Qty: 30 0RF ticagrelor [Brilinta] 90 mg tablet 90 mg PO BID 30 Days Qty: 60 0RF famotidine 20 mg tablet 20 mg PO .prn Qty: 30 0RF atorvastatin 80 mg tablet 80 mg PO DAILY Qty: 30 0RF metoprolol succinate 25 mg tablet extended release 24 hr 25 mg PO DAILY Qty: 30 0RF Continued lisinopril 20 mg tablet 20 mg PO DAILY Qty: 30 2RF turmeric 400 mg capsule 400 mg PO Q2D cyanocobalamin (vitamin B-12) 1,000 mcg tablet 1,000 mcg PO DAILY diclofenac sodium [Voltaren Arthritis Pain] 1 % gel 2 g topical QID Rx Instructions: apply to single elbow, wrist or hand; for hand includes palm/fingers/back of hand cholecalciferol (vitamin D3) 125 mcg (5,000 unit) capsule 125 mcg PO DAILY polyvinyl alcohol 1.4 % Drops 1 drp OPB BID PRN (Reason: Dry Eyes) loratadine [Claritin] 10 mg Tablet 10 mg PO QAM acetaminophen 500 mg Tablet 1,000 mg PO Q8H PRN (Reason: pain) Qty: 60 0RF zinc acetate 50 mg (zinc) Capsule 50 mg PO BID Lactobacillus acidophilus 10 billion cell Capsule 10,000 mmu cells PO DAILY Discharge Orders: Discharge Order (Routine); Ordered 04/10/25 Ordered By: Adalid Wadsworth/Other Patient Handouts: Metoprolol Oral Tablet, Fast-Acting Nitroglycerin, Exercise for a Healthier Heart, Cardiac Rehab Getting Started, Warning Signs of a Heart Attack Admission Data Admit Date/Time: 04/08/25 18:14 Attending Provider: Adrian Verma Admit Provider: Lam Villasenor Primary Care Provider: Ninfa Bender Other Providers: Muna Alfredo Other Interventions: Discharge Summary Assessment (RN) Last Done: 04/10/25 10:36 Supervising Physician Co-Signing Physician Notes I personally examined the patient and verified all bates points of history and exam, discussed case, and agree with decision making with Dr Rubio PGY 1 Patient admitted for NSTEMI. Patient had a cardiac cath and required 3 ISA. Patient loaded with brillinta and placed on ASA, will continue dual antiplatelet therapy. no new problems no new needs identified. Vitals noted, Sitting in his room, no distress. HEENT normocephalic atraumatic mucous membranes moist. Breathing unlabored no accessory muscle use good effort. Skin without rashes pallor or icterus. Neuro without focal deficits. Otherwise as above, spent 35 minutes for discharge. Resident Activity Tracking Resident Involvement: Resident Care Provided Care Provided: Adult Hospital Medicine
[2025-04-10 10:38] VITALS: BP 135/74; PULSE 73
--- NOTE | 2025-04-11 06:16 | Electrocardiogram Report ---
Test Reason : Blood Pressure : */* mmHG Vent. Rate : 70 BPM Atrial Rate : 70 BPM P-R Int : 188 ms QRS Dur : 76 ms QT Int : 444 ms P-R-T Axes : 67 44 103 degrees QTcB Int : 479 ms Normal sinus rhythm Nonspecific ST and T wave abnormality Abnormal ECG When compared with ECG of 09-Apr-2025 11:54, (unconfirmed) [place] interval has decreased Confirmed by Duke Perkins ([id number]) on 04/11/2025 6:15:32 AM Referred By: REFERRED SELF Confirmed By: Duke Perkins
--- NOTE | 2025-04-11 06:22 | Electrocardiogram Report ---
Test Reason : Blood Pressure : */* mmHG Vent. Rate : 68 BPM Atrial Rate : 68 BPM P-R Int : 220 ms QRS Dur : 80 ms QT Int : 442 ms P-R-T Axes : 73 53 90 degrees QTcB Int : 469 ms Sinus rhythm with 1st degree A-V block Cannot rule out Anterior infarct (cited on or before 08-Apr-2025) Abnormal ECG When compared with ECG of 08-Apr-2025 16:26, [place] interval has increased Confirmed by Duke Perkins ([id number]) on 04/11/2025 6:22:05 AM Referred By: REFERRED SELF Confirmed By: Duke Perkins
--- NOTE | 2025-04-12 08:40 | Billing Data ---
Date of Service April 09, 2025 Coding Level of Care Code 55743 SUB INP/OBS CARE
--- NOTE | 2025-04-19 22:02 | Billing Data ---
Date of Service April 10, 2025 Coding Level of Care Code 72290 INP/OBS DISCH >30 MIN Time Spent (min) 35
--- NOTE | 2025-04-20 11:42 | Cardiac Catheterization ---
[facility] Data: Senior It Architect Cardiac Status Clinical evaluation leading to the procedure CAD Presenation: Non STEMI Anginal Classification: CCS IV Heart Failure: No Cardiogenic Shock within 24 Hours: No Cardiac Arrest within 24 Hours: No Imaging Studies Past 6 Months: Yes Coronary Anatomy Dominant: Right Left Main (% Stenosis): Normal (Less than 10% scattered) LAD (% Stenosis): Proximal (Calcified 20%) and Mid (Calcified 20%) D1 (% Stenosis): Normal D2 (% Stenosis): Normal Circumflex (% Stenosis): Normal OM1 (% Stenosis): Normal OM2 (% Stenosis): Proximal (Proximal to mid diffuse calcified up to 95%.) RCA (% Stenosis): Proximal (Mild calcification) and Mid (Less than 30% stenosis) R PDA (% Stenosis): Normal R PL1 (% Stenosis): Normal Diagnostic Physicians Name: Geoffrey Barnett MD, PhD Closure Device Percutaneous Entry Location: Radial Closure Device: Radial Band Recommendations: Medical Therapy and/or Counseling and PCI without planned CABG PCI Indication: PCI for high risk Non-EMERALD Lesion Segment Name: Proximal to mid OM 2 Culprit Artery: Yes Stenosis Prior to Rx (%): 95% Chronic Total Occlusion: No Pre-Procedure ROSEANNE Flow: 2 Previously Treated Lesion: No Lesion Complexity: High/C Lesion Length (mm): 24 Thrombus Present: No Bifurcation Lesion: Yes Guidewire Across Lesion: Yes Intraprocedure Events Significant Disection: No Perforation: No Cardiac Cath Procedure Full Procedure Date April 09, 2025 Pre-Procedure Diagnosis Pre-Procedure Diagnosis: Non STEMI AUC Score AUC Score: 07 Post-Procedure Diagnosis Post-Procedure Diagnosis: Severe CAD and Successful PCI Procedure(s) Performed Procedure(s) Performed: Coronary Angiography and Drug Eluting Stent Technical Applications Specialist Geoffrey Barnett MD, PhD Estimated Blood Loss Estimated Blood Loss: 5 cc Medication(s) Medication(s): Fentanyl, Heparin, Lidocaine 1%, Nicardipine, Nitroglycerin and Versed Summary of Findings Brief description: Patient was brought to the cardiac catheterization suite where she was shaved and prepped in sterile fashion. Sedated using IV Versed and fentanyl. Soft tissues of the right wrist were anesthetized using 2 mL of 1% Xylocaine. The right radial artery was accessed with a modified Seldinger technique and a 6 American radial artery glide sheath was placed. All catheters were advanced and exchanged over a 0.035 wire. We first used a wholey wire and then switched to J wires after that. Patient was provided anticoagulation with IV heparin and antispasmodics including nicardipine and nitroglycerin. Left coronary angiography in orthogonal views with a 5 American Umbarger 4 diagnostic catheter. Right coronary angiography in orthogonal views with a 5 American Umbarger 4 catheter. Decision was made to proceed with PCI. Diagnostic catheters were removed. ACT was checked intermittently throughout the case and additional heparin was provided as needed to maintain therapeutic anticoagulation. A 6 American EBU 3.0 guide catheter was used to engage the left main coronary. A BMW universal guidewire was advanced through the guide catheter and positioned distally in the circumflex OM branch beyond the lesion. A second BMW universal guidewire was then advanced through the circumflex but directed to the distal AV groove vessel. Lesion was predilated with a 2.5 x 12 mm trek balloon up to 14 uzair. Attempted to advance a 3.0 x 18 Andreas ISA but then was not easily delivered so was removed. A 2.0 x 8 mm trek balloon was advanced over the second BMW universal guidewire and positioned across the bifurcation point where it was inflated up to 14 uzair. Balloon was then removed. The 3.0 x 18 mm [place] drug-eluting stent was reinserted over the first BMW and the stent was delivered across the lesion just spanning the branch point. This stent was then deployed at 14 uzair after removal of the second BMW universal guidewire. A 3.0 x 8 mm Andreas drug-eluting stent was then advanced and positioned in an overlap fashion just distal to the first stent where it was deployed at 12 uzair. Overlap was then dilated to the 14 uzair carlton with final dilation in the proximal portion of the original stent up to 16 uzair. Stent balloon was removed. A 3.0 x 8 mm dario point drug-eluting stent was then advanced and positioned in an overlapped fashion with the proximal portion of the first stent to cover the residual calcified lesion in the early part of the circumflex. This was deployed at 17 uzair. Stent balloon was removed. We attempted to redirect the BMW reversal guidewire across the stent struts distally into the AV groove vessel but were unsuccessful in delivering an NC Calixto 1.5 x 8 mm balloon. Fortunately, the flow in that segment significantly improved and we therefore abandoned PTCA of that area. BMW reversal guidewire was removed. Final angiographic evaluation was performed in orthogonal views. Guide catheter was removed over the J-wire. Radial artery sheath was removed. Hemostasis was obtained using a TR band. Patient was hemodynamically stable and asymptomatic. She was returned to the recovery area. This ended the case. Coronary angiography findings: [id number]. Bifurcates into LAD and circumflex. Less than 10% stenosis. [id number] and transapical. Proximal calcification with mild less than 20% stenosis. Mid vessel also calcified with less than 20% stenosis. Distally no significant disease. LAD provides a small first diagonal and a medium caliber branching second diagonal. The branch vessels have no disease. LCx-large caliber and nondominant. Provides a small caliber high arising OM1. Then, becomes a large branching OM 2. This has proximal to mid calcification with up to 95% stenosis and is a culprit lesion. ROSEANNE II flow. There is also an atrial branch arising from the AV groove circumflex. RCA-this is large and dominant. Proximal mild calcification with luminal irregularities. Mid vessel with less than 30% stenosis. Distally it bifurcates into the PDA and a large branching posterolateral. No angiographically evident disease. PCI of circumflex OM 2 0% residual stenosis post PCI ROSEANNE-3 flow post PCI No evidence of dissection or perforation post PCI Jailed branch vessel with ROSEANNE-3 flow post PCI Summary: 1. Severe complex circumflex/OM 2 disease. Culprit for non-STEMI. 2. Successful PCI with implantation of 3 overlapped drug-eluting stents. 3. Recommend guideline directed medical therapy for secondary prevention of coronary disease to include; low-dose aspirin, high intensity statin therapy, beta-laureano, plus or minus SONYA inhibitor/ARB at the discretion of primary electrical research engineer. 4. Dual antiplatelet therapy with aspirin 81 mg daily and Brilinta 90 mg p.o. twice daily for a minimum of 1 to 2 years. Consider longer duration given complexity of stenting. Hemodynamics Rest Ao:: 128/73 mmHg Final Ao: 144/70 mmHg LV: Not performed Recommendations Recommendations: Medical Therapy and/or Counseling and PCI without planned CABG Radiation Exposure (mGy) 943 mGy, fluoroscopy time 15.8 minutes Contrast (mls) 240 cc Anesthesia 3 mg Versed, 75 mcg fentanyl IV. Start 1037, end 1135 Procedural Complication(s) None Disposition Senior It Architect Holding/Recovery I attest to the content of the Intraoperative Record and any orders documented therein. Any exceptions are noted below. [facility] Card Cath Procedure Codes Cardiac Catheterization Procedure 1: Cardiovascular Cath Procedures: 03933 Coronaries Moderate Sedation Procedure 1: Sedation/Anesthesia: 39900 Mod Sedation by the same physician;Init15 Min Child Age 5 & Up (Initial 15 minutes, start time 1037) Procedure 2: Sedation/Anesthesia: 23600 Mod Sedation by the same physician; Ea [id number] Minutes (Additional 43 minutes, end time 1135) Stenting Procedure 1: Cardiovascular Stent Procedures: 39685 Perc transluminal revascularization of acute sub/total occl, aMI (LCx) PG Care Time/CCT Total # of Minutes Spent Total Time Spent with Patient: Total time spent is greater than 50% in coordination of care (as documented) at patient's floor/unit and/or counseling patient:
== END 2025-04-10 11:36 | disposition home or self-care (01) | DRG 322 ==
LOC: ED 15:16 → SUATTDRO 18:14 → EDINP 18:14 → 2S 22:08
PROC: CLB.CCO (2025-04-09 10:00)

== ENCOUNTER 2025-07-06 08:55 | Inpatient (IN) ==
--- NOTE | 2025-07-06 09:04 | Emergency Department Note ---
Impression & Plan Near syncope, Nausea, Lightheaded ED Provider Note NAME: GABRIELLA MEANS AGE: 79 SEX: F : 1945 ARRIVES VIA: Walk-In INFORMANT: Patient ED PROVIDER(S): Lam Mcgarry DO CHIEF COMPLAINT: Near syncope HPI: Patient is a 79-year-old female with past medical history of heart failure with reduced EF, NSTEMI, unstable angina, 3 stents, scleroderma, hypertension who presents to the ER for near syncopal episode. She notes that she had 3 stents placed in the March. She was working out and at the end of the workout. She became short of breath and very lightheaded. After this she felt sick to her stomach and did vomit. They checked her blood pressure and it was in the 60s. They brought her over. She never had any chest pain. No dysuria, urgency, or frequency. No other exacerbating or remitting factors. Patient was given aspirin, IV fluids and Zofran. ADDITIONAL HISTORY OBTAINED: Per HPI Chronic Medical/Social Conditions Affecting Care: Per HPI PAST MEDICAL HISTORY:See Below PAST SURGICAL HISTORY:See Below FAMILY HISTORY:See Below SOCIAL HISTORY:See Below HOME MEDICATIONS:See Below ALLERGIES:See Below VITALS:See Below PHYSICAL EXAMINATION: GENERAL: Sitting up in bed, alert, well appearing, well nourished, no distress, non-toxic EYE EXAM: normal conjunctiva. PERRL and EOM's grossly intact. OROPHARYNX: no exudate, no erythema, lips, buccal mucosa, and tongue normal and mucous membranes are moist NECK: supple, no nuchal rigidity, no adenopathy, non-tender LUNGS: Clear to auscultation. Normal chest wall mechanics HEART: no murmurs, S1 normal and S2 normal ABDOMEN: abdomen soft, non-tender, normo-active bowel sounds, no masses, no rebound or guarding. UPPER EXTREMITIES: upper extremities are grossly normal. LOWER EXTREMITIES: No pitting edema. Calves are equal bilaterally NEURO EXAM: Normal sensorium, cranial nerves II-XII grossly intact, normal speech, no gross weakness of arms, no gross weakness of legs. MEDICAL DECISION MAKING: Patient is a 79-year-old female with known history of CAD who presents ER for a near syncopal episode. IV was established and blood work was obtained. Labs showed no significant leukocytosis or anemia. BMP with creatinine 1.2. LFTs bilirubin and lipase was unremarkable. Troponins were negative x 2. EKG was fairly unchanged from previous. I discussed the case with cardiology and initially they recommended discharge but after further review they called me back and recommended admission. Discussed case with the hospitalist for further evaluation management treatment. Consults/Care Managements Discussions: Per [facility] Triage Nursing notes reviewed. Limited review of prior medical records performed Vital Signs: reviewed and remarkable for no significant abnormalities Differential diagnosis: Cardiac ischemia, aortic dissection, pulmonary embolism, pneumothorax, pneumonia, pericarditis, myocarditis, esophageal rupture, GERD, cholecystitis, pancreatitis, musculoskeletal, as well as other pathologies. ER treatment provided: See below Diagnostics interpreted by me include EKG and cardiac monitoring as listed below: -Cardiac Monitoring: An order was placed for continuous cardiac monitoring. The monitor shows a rate of 70 with sinus rhythm. -ECG: Sinus rhythm rate 68 Normal axis No PVCs T wave inversions in the septal leads QTc 442 No change from previous -Laboratory studies:Interpreted by me as stated above in MDM and shown below. Imaging studies: Xrays: As interpreted by me: Portable AP upright 1 view of the chest shows no focal infiltrate CTs show: none Procedures:none Critical Care: None Past Med/Surg History Problem List (Updated 07/06/25 @ 12:53 by Enrike Fitzpatrick MD) CAD (coronary artery disease) Lightheaded (Acute) Nausea (Acute) Near syncope (Acute) HFrEF (heart failure with reduced ejection fraction) Non-ST elevation [place] (NSTEMI) (Acute) Unstable angina (Acute) Dyslipidemia NSTEMI (non-ST elevated myocardial infarction) Hypertension Scleroderma Arthralgia Vitamin D deficiency Seasonal allergies Medical History Ankle fracture RT Encounter for pre-operative examination Arthritis Kidney cysts benign Surgical History History of open reduction and internal fixation (ORIF) procedure right ankle 04/23/20 History of cataract extraction RT/LEFT History of anesthesia reaction "slow to wake" History of colonoscopy [place] teeth removed History of tonsillectomy Family History Father Family history of diabetes mellitus Rheumatoid arthritis Brother Family history of diabetes mellitus Grandfather Family history of diabetes mellitus Rheumatoid arthritis Aunt Lupus (systemic lupus erythematosus) Social History Smoking Status: Former smoker Tobacco Type: Cigarettes Second Hand Exposure: Yes (IN THE PAST); Do You Dip or Chew Tobacco: No; Hx Alcohol Use: Yes Alcohol type: beer and wine Hx Substance Use: No Preferred Language: Citizen Of [place] Communication Ability: Effective Esthetician/Spa Coordinator Required: No Beliefs That Will Affect Care: Spiritual Current Living Situation: Alone current occupation: Retired Feels Safe at Home: Yes Assistive Devices: Denture - Lower Allergies Allergies Allergy/AdvReac Type Severity Reaction Status Date / Time latex AdvReac Mild mild Verified 04/20/25 09:15 redness Home Meds Home Medications Medication Instructions Recorded Confirmed loratadine 10 mg tablet (Claritin) 10 mg PO QAM 02/19/20 07/06/25 polyvinyl alcohol 1.4 % eye drops 1 drp OPB BID PRN Dry Eyes 04/21/20 07/06/25 cyanocobalamin (vitamin B-12) 1,000 mcg PO DAILY 07/01/24 07/06/25 1,000 mcg tablet diclofenac sodium 1 % topical gel 2 g topical QID 07/01/24 07/06/25 (Voltaren Arthritis Pain) turmeric 400 mg capsule 400 mg PO Q2D 07/01/24 07/06/25 cholecalciferol (vitamin D3) 125 125 mcg PO DAILY 12/30/24 07/06/25 mcg (5,000 unit) capsule Lactobacillus acidophilus 10 10,000 mmu cells PO DAILY 04/08/25 07/06/25 billion cell capsule zinc acetate 50 mg (zinc) capsule 50 mg PO BID 04/08/25 07/06/25 famotidine 20 mg tablet 40 mg PO DAILY 07/06/25 07/06/25 ticagrelor 90 mg tablet (Brilinta) 90 mg PO BID 07/06/25 07/06/25 Previous Rx's Medication Instructions Recorded acetaminophen 500 mg tablet 1,000 mg (2 x 500 mg) PO Q8H PRN 04/24/20 pain #60 tabs lisinopril 20 mg tablet 20 mg PO DAILY #30 tabs 03/30/25 atorvastatin 80 mg tablet 80 mg PO DAILY #30 tabs 04/10/25 metoprolol succinate 25 mg 25 mg PO DAILY #30 tabs 04/10/25 tablet,extended release 24 hr nitroglycerin 0.4 mg sublingual 0.4 mg sublingual ONCE #10 tabs 04/10/25 tablet Results & Data (ED) Vital Signs Vital Signs - 24 hr 07/06/25 08:53 07/06/25 09:07 07/06/25 09:09 Temperature 36.3 C L Temperature Source Oral Pulse Rate 72 69 Pulse Rate [Apical] Respiratory Rate 18 Respiratory Effort / Characteristics Non-Labored Spontaneous Respiratory Depth Normal Respiratory Pattern Regular Blood Pressure 170/93 H Blood Pressure [Right Arm] Blood Pressure Mean 118 Blood Pressure Mean [Right Arm] Pulse Oximetry 97 99 Oxygen Delivery Method Room Air Room Air Sepsis Recent Fever Within 48 Hours No Sepsis New/Unexplained Change in Mental Status N/A Sepsis Action Taken by Nursing No Action Required 07/06/25 10:38 Temperature Temperature Source Pulse Rate Pulse Rate [Apical] 61 Respiratory Rate 16 Respiratory Effort / Characteristics Respiratory Depth Respiratory Pattern Blood Pressure Blood Pressure [Right Arm] 183/85 H Blood Pressure Mean Blood Pressure Mean [Right Arm] 117 Pulse Oximetry 97 Oxygen Delivery Method Room Air Sepsis Recent Fever Within 48 Hours Sepsis New/Unexplained Change in Mental Status Sepsis Action Taken by Nursing Laboratory Data 07/06/25 09:05 07/06/25 09:05 Lab Results 07/06/25 07/06/25 Range/Units 09:05 10:52 WBC 6.36 (4.8-10.8) K/ul RBC 3.86 L (4.20-5.40) M/uL Hgb 12.1 (12.0-16.0) g/dL Hct 36.5 L (37.0-47.0) % MCV 94.6 (80.0-100.0) fL MCH 31.3 (25.0-34.0) pg MCHC 33.2 (32.0-36.0) g/dL RDW Std Deviation 46.7 H (36.4-46.3) fL RDW Coeff of Jadiel 13.5 (11.5-14.5) % Plt Count 286 (130-400) K/uL MPV 9.8 (9.4-12.4) fL Immature Gran % (Auto) 0.3 % Neut % (Auto) 62.6 % Lymph % (Auto) 24.4 % [place] % (Auto) 8.6 % Eos % (Auto) 3.3 % Baso % (Auto) 0.8 % Neut # (Auto) 3.98 (1.40-6.50) K/uL Lymph # (Auto) 1.55 (1.20-3.40) K/uL [place] # (Auto) 0.55 (0.11-0.59) K/uL Eos # (Auto) 0.21 (0.00-0.50) K/uL Baso # (Auto) 0.05 (0.00-0.20) K/uL Immature Gran # (Auto) 0.02 (0.01-0.20) K/uL Sodium 139 (136-145) mmol/L Potassium 4.3 (3.5-5.1) mmol/L Chloride 106 (98-107) mmol/L Carbon Dioxide 25 (21-32) mmol/L Anion Gap 8 (3-11) BUN 23 (6-23) mg/dl Creatinine 1.22 H (0.6-1.2) mg/dl Est Cr Clr Drug Dosing 26.3 ml/min eGFR 45.42 BUN/Creatinine Ratio 18.9 (10-20) Glucose 120 H (70-99(Fasting)) mg/dl Calcium 10.2 (8.6-10.3) mg/dl Total Bilirubin 0.7 (0.2-1.0) mg/dl AST 18 (13-39) U/L ALT 18 (7-52) U/L Alkaline Phosphatase 62 (34-104) U/L Troponin I High Sens 4.8 4.7 (0-14) pg/ml Total Protein 7.7 (6.0-8.3) gm/dl Albumin 4.6 (3.4-5.0) gm/dl Globulin 3.1 (2.5-4.0) gm/dl Albumin/Globulin Ratio 1.5 (0.9-2) Lipase 47 (11-82) U/L Administered Medications Discontinued Medications Aspirin (Aspirin Chew 324 Mg) 324 mg PO NOW STA Stop: 07/06/25 09:01 Last Admin: 07/06/25 09:08 Dose: 324 mg Documented By: GCC Sodium Chloride (Nss) 1,000 mls @ 999 mls/hr IV .Q1H1M ONE Stop: 07/06/25 10:00 Last Infusion: 07/06/25 10:23 Dose: Infused Documented By: Admin: 07/06/25 09:07 Dose: 999 mls/hr Documented By: LUKAS Non-Formulary Medication (Turmeric) 400 mg PO Q2D ALEJANDRA Stop: 08/05/25 12:44 Last Admin: 07/06/25 13:08 Dose: Not Given Documented By: LUKAS Ondansetron HCl (Ondansetron Inj 2 Mg/Ml 2 Ml Vial) 4 mg IV NOW STA Stop: 07/06/25 09:01 Last Admin: 07/06/25 09:07 Dose: 4 mg Documented By: LUKAS Imaging Data Radiologist's Impression: Chest X-Ray 07/06/25 09:00 SINGLE VIEW CHEST CLINICAL HISTORY: Chest pain FINDINGS: An AP, portable, upright chest radiograph is compared to study dated 04/08/2025. The heart is mildly enlarged noting atherosclerotic calcification of the thoracic aorta. The pulmonary vasculature is noncongested. Chronic interstitial thickening is similar to previous. There is mild bibasilar scarring/atelectasis. The lungs and pleural spaces are otherwise clear. No pneumothorax is seen. The skeletal structures are osteopenic. The bony thorax is grossly intact. Degenerative change is noted in the shoulders. Superior subluxation of both humeral heads suggest chronic rotator cuff injury. IMPRESSION: No acute cardiopulmonary abnormality is identified. ACT 112: Negative or not required by law. Electronically signed by: David Ramos M.D. 07/06/2025 9:30 AM Discharge Plan Visit Data Chief Complaint: Syncope (Near Syncope) ED Provider: Lam Mcgarry Discharge Problem: Near syncope, Nausea, Lightheaded Patient Disposition: Home - Self-Care Condition: Fair Discharge Instructions Interventions: ED Discharge Assessment Last Done: 07/06/25 12:50
[2025-07-06] MEDS: ONDANSETRON INJ 2 MG/ML 2 ML VIAL IV STA (09:07)
[2025-07-06] MEDS: SODIUM CHLORIDE 0.9% 1,000 ML IV ONE (09:07)
[2025-07-06] MEDS: ASPIRIN CHEW 324 MG PO STA (09:08)
[2025-07-06 09:22] LABS: Hematocrit (blood only) 36.5 % (37.0-47.0); Hemoglobin 12.1 g/dL (12.0-16.0); Immature Granulocytes # (auto) 0.02 K/uL (0.01-0.20); Immature Granulocytes % (auto) 0.3 %; Mean Corpuscular Hemoglobin 31.3 pg (25.0-34.0); Mean Corpuscular Volume 94.6 fL (80.0-100.0); Platelet Count 286 K/uL (130-400); RDW Standard Deviation 46.7 fL (36.4-46.3); Red Blood Count 3.86 M/uL (4.20-5.40); White Blood Count 6.36 K/ul (4.8-10.8)
--- NOTE | 2025-07-06 09:31 | XRay Report ---
SINGLE VIEW CHEST CLINICAL HISTORY: Chest pain FINDINGS: An AP, portable, upright chest radiograph is compared to study dated 04/08/2025. The heart i s mildly enlarged noting atherosclerotic calcification of the thoracic aorta. The pulmonary vasculatu re is noncongested. Chronic interstitial thickening is similar to previous. There is mild bibasilar s carring/atelectasis. The lungs and pleural spaces are otherwise clear. No pneumothorax is seen. The s keletal structures are osteopenic. The bony thorax is grossly intact. Degenerative change is noted in the shoulders. Superior subluxation of both humeral heads suggest chronic rotator cuff injury. IMPRESSION: No acute cardiopulmonary abnormality is identified. ACT 112: Negative or not required by law. Electronically signed by: David Ramos M.D. 07/06/2025 9:30 AM
[2025-07-06 09:37] LABS: Alanine Aminotransferase 18.0 U/L (7-52); Albumin Globulin Ratio 1.5 (0.9-2); Albumin Level 4.6 gm/dl (3.4-5.0); Alkaline Phosphatase 62.0 U/L (34-104); Anion Gap 8.0 (3-11); Bilirubin,Total 0.7 mg/dl (0.2-1.0); Blood Urea Nitrogen 23.0 mg/dl (6-23); Calcium 10.2 mg/dl (8.6-10.3); Carbon Dioxide 25.0 mmol/L (21-32); Chloride 106.0 mmol/L (98-107); Creatinine Clr Calc Pharmacy 26.3 ml/min; Globulin 3.1 gm/dl (2.5-4.0); Glucose 120.0 mg/dl (70-99(Fasting)); Lipase 47.0 U/L (11-82); Potassium 4.3 mmol/L (3.5-5.1); Sodium 139.0 mmol/L (136-145); Total Protein 7.7 gm/dl (6.0-8.3)
[2025-07-06] MEDS ORDERED: ONDANSETRON INJ 2 MG/ML 2 ML VIAL IV PRN (12:38)
[2025-07-06] MEDS ORDERED: ACETAMINOPHEN 325 MG TAB PO PRN (12:38)
[2025-07-06] MEDS ORDERED: NITROGLYCERIN SL 0.4 MG/TAB TAB SL PRN (12:45)
[2025-07-06] MEDS ORDERED: FAMOTIDINE 20 MG TAB PO PRN (12:45)
--- NOTE | 2025-07-06 12:48 | History & Physical Report ---
Date of Service July 06, 2025 Assessment & Plan (1) Near syncope: Plan: -tele -echo -cardiology consulted -PT (2) Hypertension: Plan: -lisinopril (3) CAD (coronary artery disease): Plan: -asa -metoprolol -atorvastatin (4) Scleroderma: Plan Heparin SQ for DVT px History of Present Illness Chief Complaint: near syncope Primary Care Provider: NO PCP Pt is a 79 y/o female with PMH of CAD s/p stent x3 placement in March, scleroderma who presents with near syncopal episode while working out. Pt experienced lightheadedness, SOB and vomited. At the time her blood pressure was noted to be in the 60s. She denied any chest pain or palpitations. In the ER she had EKG which showed ST depressions in the septal leads. Her CXR was negative for any acute pathology. Due to her history of recent stent placement pt is being admitted for further cardiac evaluation of her near syncope episode. Allergies Allergy/AdvReac Type Severity Reaction Status Date / Time latex AdvReac Mild mild Verified 04/20/25 09:15 redness Home Medications Medication Instructions Recorded Confirmed Type loratadine 10 mg tablet (Claritin) 10 mg PO QAM 02/19/20 07/06/25 History polyvinyl alcohol 1.4 % eye drops 1 drp OPB BID PRN Dry Eyes 04/21/20 07/06/25 History acetaminophen 500 mg tablet 1,000 mg (2 x 500 mg) PO Q8H PRN 04/24/20 07/06/25 Rx pain #60 tabs cyanocobalamin (vitamin B-12) 1,000 mcg PO DAILY 07/01/24 07/06/25 History 1,000 mcg tablet diclofenac sodium 1 % topical gel 2 g topical QID 07/01/24 07/06/25 History (Voltaren Arthritis Pain) turmeric 400 mg capsule 400 mg PO Q2D 07/01/24 07/06/25 History cholecalciferol (vitamin D3) 125 125 mcg PO DAILY 12/30/24 07/06/25 History mcg (5,000 unit) capsule lisinopril 20 mg tablet 20 mg PO DAILY #30 tabs 03/30/25 07/06/25 Rx Lactobacillus acidophilus 10 10,000 mmu cells PO DAILY 04/08/25 07/06/25 History billion cell capsule zinc acetate 50 mg (zinc) capsule 50 mg PO BID 04/08/25 07/06/25 History atorvastatin 80 mg tablet 80 mg PO DAILY #30 tabs 04/10/25 07/06/25 Rx metoprolol succinate 25 mg 25 mg PO DAILY #30 tabs 04/10/25 07/06/25 Rx tablet,extended release 24 hr nitroglycerin 0.4 mg sublingual 0.4 mg sublingual ONCE #10 tabs 04/10/25 07/06/25 Rx tablet famotidine 20 mg tablet 40 mg PO DAILY 07/06/25 07/06/25 History ticagrelor 90 mg tablet (Brilinta) 90 mg PO BID 07/06/25 07/06/25 History Past Med/Surg History Problem List (Updated 07/06/25 @ 12:53 by Enrike Fitzpatrick MD) CAD (coronary artery disease) Lightheaded (Acute) Nausea (Acute) Near syncope (Acute) HFrEF (heart failure with reduced ejection fraction) Non-ST elevation [place] (NSTEMI) (Acute) Unstable angina (Acute) Dyslipidemia NSTEMI (non-ST elevated myocardial infarction) Hypertension Scleroderma Arthralgia Vitamin D deficiency Seasonal allergies Medical History Ankle fracture RT Encounter for pre-operative examination Arthritis Kidney cysts benign Surgical History History of open reduction and internal fixation (ORIF) procedure right ankle 04/23/20 History of cataract extraction RT/LEFT History of anesthesia reaction "slow to wake" History of colonoscopy [place] teeth removed History of tonsillectomy Family History Father Family history of diabetes mellitus Rheumatoid arthritis Brother Family history of diabetes mellitus Grandfather Family history of diabetes mellitus Rheumatoid arthritis Aunt Lupus (systemic lupus erythematosus) Social History Smoking Status: Former smoker Tobacco Type: Cigarettes Second Hand Exposure: Yes (IN THE PAST); Do You Dip or Chew Tobacco: No; Hx Alcohol Use: Yes Alcohol type: beer and wine Hx Substance Use: No Preferred Language: [place] Communication Ability: Effective Vending Machine Repairer Required: No Beliefs That Will Affect Care: Spiritual Current Living Situation: Alone current occupation: Retired Feels Safe at Home: Yes Assistive Devices: Denture - Lower Review of Systems Review of Systems: CONST: Negative for fever, body aches and chills. HENT: Negative for neck pain/stiffness, headache, congestion, sore throat, swelling. EYES: Negative for discharge/pain or vision changes. RESP: Negative for cough/hemoptysis and shortness of breath. CV: Negative chest pain, difficulty breathing, palpitations. ABD: Negative pain, nausea, vomiting. : Negative increase frequency, dysuria, blood in urine or stool. MUSC: Negative for muscle aches, edema. SKIN: Negative rash, lesions/sores. NEURO: +lightheadedness,Negative headache, dizziness, weakness. Physical Exam Physical Exam: GENERAL APPEARANCE NAD, activity normal for age, well developed/ well nourished, no cyanosis, pallor, or diaphoresis. EYES lids/conjunctiva normal. EARS/NOSE/THROAT Mucous membranes moist, nares normal, lips/teeth normal uvula midline without oral pharyngeal erythema, exudate or swelling TMs normal bilaterally. No lymphangitis/lymphedema. HEAD/NECK normocephalic atraumatic, no facial trauma, neck is supple. RESPIRATORY respiratory effort normal, speaks in full sentences, no tripod position, no accessory muscle use. Lungs clear to auscultation without rhonchi, wheezes, rales CARDIAC Regular rate and rhythm, no edema. ABDOMINAL Soft, ND/NT. No evidence of fluid wave. No pulsatile masses on exam, rebound tenderness, Fink sign or pain over Mcburney's point. MUSCLES/EXTREMITIES No abnormal range of motion, no swelling. SKIN Warm, pink and dry. No rashes, dermatoses, petechiae or lesions. NEUROLOGICAL Speech is clear and appropriate. Normal level of consciousness. Gait and coordination are normal. 5/5 strength in all extremities. PSYCH Normal mood and affect. Judgement/competence is appropriate Results & Data Results & Data Vital Signs (Past 12 Hours) Vital Signs Temp Pulse Pulse Resp BP BP Pulse Ox 07/06/25 10:38 61 16 183/85 H 97 07/06/25 09:09 99 07/06/25 09:07 69 07/06/25 08:53 36.3 C L 72 18 170/93 H 97 O2 Del Method 07/06/25 10:38 Room Air 07/06/25 09:09 Room Air 07/06/25 09:07 07/06/25 08:53 Room Air PG Care Time/CCT Total # of Minutes Spent Total Time Spent with Patient: Total time spent is greater than 50% in coordination of care (as documented) at patient's floor/unit and/or counseling patient: Coding Level of Care Code 25667 INT INP/OBS CARE 2/55MIN Diagnoses Near syncope R55 Hypertension, unspecified type I10 Hypertension type: unspecified CAD (coronary artery disease) I25.10 Scleroderma M34.9 (2) Hypertension Hypertension type: unspecified Qualified Code(s): I10 - Essential (primary) hypertension
[2025-07-06] MEDS: HEPARIN SOD 5,000 UNIT/0.5 ML VIAL SQ SCH (15:00)
[2025-07-06] MEDS ORDERED: NON-FORMULARY MEDICATION (Zinc Acetate 50 mg (zinc) Capsule) PO SCH (21:00)
[2025-07-06] MEDS: ACETAMINOPHEN 500 MG TAB PO PRN (21:52)
[2025-07-06] MEDS: METOPROLOL SUCC 50MG EXT REL TAB PO SCH (21:52)
[2025-07-07] MEDS: ASPIRIN 81 MG ECTAB PO SCH (07:30)
[2025-07-07 08:05] LABS: Hematocrit (blood only) 32.4 % (37.0-47.0); Hemoglobin 10.8 g/dL (12.0-16.0); Mean Corpuscular Hemoglobin 31.2 pg (25.0-34.0); Mean Corpuscular Volume 93.6 fL (80.0-100.0); Platelet Count 247 K/uL (130-400); RDW Standard Deviation 47.3 fL (36.4-46.3); Red Blood Count 3.46 M/uL (4.20-5.40); White Blood Count 5.66 K/ul (4.8-10.8)
[2025-07-07 08:27] LABS: Anion Gap 8.0 (3-11); Blood Urea Nitrogen 25.0 mg/dl (6-23); Calcium 9.0 mg/dl (8.6-10.3); Carbon Dioxide 24.0 mmol/L (21-32); Chloride 108.0 mmol/L (98-107); Creatinine Clr Calc Pharmacy 28.0 ml/min; Glucose 97.0 mg/dl (70-99(Fasting)); Potassium 4.1 mmol/L (3.5-5.1); Sodium 140.0 mmol/L (136-145)
[2025-07-07] MEDS ORDERED: METOPROLOL SUCC 25MG EXT REL TAB PO SCH (09:00)
[2025-07-07] MEDS: ATORVASTATIN 40 MG TAB PO SCH (09:25)
[2025-07-07] MEDS: TICAGRELOR 90 MG TAB PO SCH (09:25)
[2025-07-07] MEDS: CHOLECALCIFEROL 125 MCG (5,000 UNITS) TAB PO SCH (09:25)
[2025-07-07] MEDS: ADVANCED PROBIOTIC 625 MG CAPSULE PO SCH (09:25)
[2025-07-07] MEDS: CYANOCOBALAMIN (B-12) 500 MCG TABLET PO SCH (09:25)
--- NOTE | 2025-07-07 09:29 | Hospitalist Progress Note ---
Date of Service July 07, 2025 Assessment & Plan (1) Near syncope: Plan: -tele -echo -cardiology consult appreciated -Pt awaiting cardiac cath this am (2) Hypertension: Plan: -lisinopril (3) CAD (coronary artery disease): Plan: -asa -metoprolol -atorvastatin (4) Scleroderma: Plan Heparin SQ for DVT px Admission and Anticipated Discharge Date Admission Date: July 06, 2025 Subjective No events overnight. Pt resting comfortably in bed. Review of Systems Review of Systems: CONST: Negative for fever, body aches and chills. HENT: Negative for neck pain/stiffness, headache, congestion, sore throat, swelling. EYES: Negative for discharge/pain or vision changes. RESP: Negative for cough/hemoptysis and shortness of breath. CV: Negative chest pain, difficulty breathing, palpitations. ABD: Negative pain, nausea, vomiting. : Negative increase frequency, dysuria, blood in urine or stool. MUSC: Negative for muscle aches, edema. SKIN: Negative rash, lesions/sores. NEURO: +lightheadedness,Negative headache, dizziness, weakness. Physical Exam Physical Exam: GENERAL APPEARANCE NAD, activity normal for age, well developed/ well nourished, no cyanosis, pallor, or diaphoresis. EYES lids/conjunctiva normal. EARS/NOSE/THROAT Mucous membranes moist, nares normal, lips/teeth normal uvula midline without oral pharyngeal erythema, exudate or swelling TMs normal bilaterally. No lymphangitis/lymphedema. HEAD/NECK normocephalic atraumatic, no facial trauma, neck is supple. RESPIRATORY respiratory effort normal, speaks in full sentences, no tripod position, no accessory muscle use. Lungs clear to auscultation without rhonchi, wheezes, rales CARDIAC Regular rate and rhythm, no edema. ABDOMINAL Soft, ND/NT. No evidence of fluid wave. No pulsatile masses on exam, rebound tenderness, Fink sign or pain over Mcburney's point. MUSCLES/EXTREMITIES No abnormal range of motion, no swelling. SKIN Warm, pink and dry. No rashes, dermatoses, petechiae or lesions. NEUROLOGICAL Speech is clear and appropriate. Normal level of consciousness. Gait and coordination are normal. 5/5 strength in all extremities. PSYCH Normal mood and affect. Judgement/competence is appropriate Results & Data Results & Data Vital Signs (Past 12 Hours) Vital Signs Temp Pulse Pulse Resp BP Pulse Ox O2 Del Method 07/07/25 07:46 36.6 C 58 L 20 160/70 H 96 Room Air 07/07/25 06:45 55 L 07/07/25 03:13 36.7 C 54 L 14 142/61 H 96 Room Air 07/06/25 23:29 36.6 C 60 16 126/63 97 Room Air 07/06/25 22:03 76 PG Care Time/CCT Total # of Minutes Spent Total Time Spent with Patient: Total time spent is greater than 50% in coordination of care (as documented) at patient's floor/unit and/or counseling patient: Coding Level of Care Code 87711 SUB INP/OBS CARE 2/35MIN Diagnoses Near syncope R55 Hypertension, unspecified type I10 Hypertension type: unspecified CAD (coronary artery disease) I25.10 Scleroderma M34.9 (2) Hypertension Hypertension type: unspecified Qualified Code(s): I10 - Essential (primary) hypertension
--- NOTE | 2025-07-07 11:34 | Pre Anesthesia Assessment ---
Date of Service July 07, 2025 Pre Sedation Assessment Vital Signs Temp Pulse Pulse Pulse Resp BP BP 07/07/25 10:43 07/07/25 07:46 97.9 F 58 L 20 160/70 H 07/07/25 06:45 55 L 07/07/25 03:13 98.0 F 54 L 14 142/61 H 07/06/25 23:29 97.9 F 60 16 126/63 07/06/25 22:03 76 07/06/25 19:27 97.7 F 65 16 162/77 H 07/06/25 15:02 65 07/06/25 15:00 97.8 F 63 17 188/81 H 07/06/25 14:42 64 18 181/83 H 07/06/25 12:48 64 18 176/83 H Pulse Ox O2 Del Method 07/07/25 10:43 96 07/07/25 07:46 96 Room Air 07/07/25 06:45 07/07/25 03:13 96 Room Air 07/06/25 23:29 97 Room Air 07/06/25 22:03 07/06/25 19:27 97 Room Air 07/06/25 15:02 07/06/25 15:00 100 Room Air 07/06/25 14:42 97 Room Air 07/06/25 12:48 98 Room Air Cardiovascular + regular rate Respiratory + respiratory effort normal Pre-Sedation Airway Assessment Smoking Status: Former smoker Hx Sleep Apnea: No Hx Difficult Intubation: No Thyromental Distance: < 3.5 Finger Breadths Oral Cavity: + Dental Abnormalities ASA: ASA3 Procedure Planning Contraindications for Sedation: none Current Medications Reviewed: Yes Notes The planned sedation has been discussed with the patient. Informed Consent was obtained. I have identified the patient, determined the appropriateness of sedation and have assessed the patient immediately prior to the procedure. All medicine(s) and interventions are by my order.
[2025-07-07] MEDS: niCARdipine 2,000 MCG/20 ML SYR ONE (13:13)
[2025-07-07] MEDS: NITROGLYCERIN/D5W 100MCG/ML 20ML SYR ONE (13:13)
--- NOTE | 2025-07-07 13:44 | Cardiology Consultation ---
Date of Consultation July 07, 2025 Assessment & Plan (1) CAD (coronary artery disease): Plan Ms. Marinelli had 3 overlapping stents placed in her OM2 in March. There was concern for a small jailed OM vessel as a source of her ongoing chest discomfort. Her EKG continues to demonstrate lateral ST depressions. Her trop did not elevate. I discussed her case with Dr. Alfredo who recommended she proceed with cardiac catheterization given this most recent event and her comp laints of chest pain at her visit earlier this month. Ms. Marinelli was agreeable to proceed. Given her recent extensive stenting, her Brillinta and aspirin should not be interrupted. Her hgb on labs was stable. She is otherwise on appropriate CAD medications. She appears euvolemic. History of Present Illness Attending Physician: Enrike Fitzpatrick MD History of Present Illness Ms. Marinelli presented to the emergency department yesterday with presyncope while at cardiac rehab. She reports a drop in her blood pressure to a systolic of 60 accompanied by feeling dizzy and nauseas. She did not lose consciousness but apparently vomited after. She denies chest pain. She had been having intermittent chest discomfort after her cath which she described at her recent follow up with Dr. Alfredo. This had been somewhat better however and she had been participating in cardiac rehab. Allergies Allergy/AdvReac Type Severity Reaction Status Date / Time latex AdvReac Mild mild Verified 04/20/25 09:15 redness Home Medications Medication Instructions Recorded Confirmed Type loratadine 10 mg tablet (Claritin) 10 mg PO QAM 02/19/20 07/06/25 History polyvinyl alcohol 1.4 % eye drops 1 drp OPB BID PRN Dry Eyes 04/21/20 07/06/25 History acetaminophen 500 mg tablet 1,000 mg (2 x 500 mg) PO Q8H PRN 04/24/20 07/06/25 Rx pain #60 tabs cyanocobalamin (vitamin B-12) 1,000 mcg PO DAILY 07/01/24 07/06/25 History 1,000 mcg tablet diclofenac sodium 1 % topical gel 2 g topical QID 07/01/24 07/06/25 History (Voltaren Arthritis Pain) turmeric 400 mg capsule 400 mg PO Q2D 07/01/24 07/06/25 History cholecalciferol (vitamin D3) 125 125 mcg PO DAILY 12/30/24 07/06/25 History mcg (5,000 unit) capsule lisinopril 20 mg tablet 20 mg PO DAILY #30 tabs 03/30/25 07/06/25 Rx Lactobacillus acidophilus 10 10,000 mmu cells PO DAILY 04/08/25 07/06/25 History billion cell capsule zinc acetate 50 mg (zinc) capsule 50 mg PO BID 04/08/25 07/06/25 History atorvastatin 80 mg tablet 80 mg PO DAILY #30 tabs 04/10/25 07/06/25 Rx metoprolol succinate 25 mg 25 mg PO DAILY #30 tabs 04/10/25 07/06/25 Rx tablet,extended release 24 hr nitroglycerin 0.4 mg sublingual 0.4 mg sublingual ONCE #10 tabs 04/10/25 07/06/25 Rx tablet famotidine 20 mg tablet 40 mg PO DAILY 07/06/25 07/06/25 History ticagrelor 90 mg tablet (Brilinta) 90 mg PO BID 07/06/25 07/06/25 History Patient History Medical History Ankle fracture RT Encounter for pre-operative examination Arthritis Kidney cysts benign Surgical History History of open reduction and internal fixation (ORIF) procedure right ankle 04/23/20 History of cataract extraction RT/LEFT History of anesthesia reaction "slow to wake" History of colonoscopy Brohard teeth removed History of tonsillectomy Family History Father Family history of diabetes mellitus Rheumatoid arthritis Brother Family history of diabetes mellitus Grandfather Family history of diabetes mellitus Rheumatoid arthritis Aunt Lupus (systemic lupus erythematosus) Social History Smoking Status: Former smoker Tobacco Type: Cigarettes Second Hand Exposure: Yes (IN THE PAST); Do You Dip or Chew Tobacco: No; Hx Alcohol Use: Yes Alcohol type: beer and wine Hx Substance Use: No Preferred Language: Dutch Communication Ability: Effective Surgical Assist Required: No Beliefs That Will Affect Care: None Current Living Situation: Alone current occupation: Retired Feels Safe at Home: Yes Assistive Devices: None Review of Systems Review of Systems: All systems reviewed & are unremarkable except as noted in HPI & below Physical Exam Constitutional: WD/WN, vitals as above Respiratory: normal respiratory effort, lungs clear to auscultation Cardiovascular: RRR, no murmur, no edema Skin: no rashes, warm and dry Neurologic: moves all extremities and awake Psychiatric: A+Ox3, euthymic affect Results & Data Vital Signs (Past 12 Hours) Vital Signs Temp Pulse Pulse Resp BP Pulse Ox O2 Del Method 07/07/25 07:46 36.6 C 58 L 20 160/70 H 96 Room Air 07/07/25 06:45 55 L 07/07/25 03:13 36.7 C 54 L 14 142/61 H 96 Room Air 07/06/25 23:29 36.6 C 60 16 126/63 97 Room Air 07/06/25 22:03 76
[2025-07-07] MEDS: HEPARIN (PORCINE) 1000 UNIT/ML 10 ML (CATH LAB USE ONLY) ONE (13:52)
[2025-07-07] MEDS: MIDAZOLAM HCL 1 MG/ML 2ML VIAL ONE ×2 (13:52→13:56)
[2025-07-07] MEDS: IODIXANOL (VISIPAQUE) 320 MG/ML 100ML IV ONE (13:54)
--- NOTE | 2025-07-07 14:09 | Pre Anesthesia Assessment ---
Date of Service July 07, 2025 Pre Sedation Assessment Vital Signs Temp Pulse Pulse Pulse Resp BP BP 07/07/25 12:17 98.0 F 66 20 174/70 H 07/07/25 10:43 07/07/25 07:46 97.9 F 58 L 20 160/70 H 07/07/25 06:45 55 L 07/07/25 03:13 98.0 F 54 L 14 142/61 H 07/06/25 23:29 97.9 F 60 16 126/63 07/06/25 22:03 76 07/06/25 19:27 97.7 F 65 16 162/77 H 07/06/25 15:02 65 07/06/25 15:00 97.8 F 63 17 188/81 H 07/06/25 14:42 64 18 181/83 H Pulse Ox O2 Del Method 07/07/25 12:17 97 Room Air 07/07/25 10:43 96 07/07/25 07:46 96 Room Air 07/07/25 06:45 07/07/25 03:13 96 Room Air 07/06/25 23:29 97 Room Air 07/06/25 22:03 07/06/25 19:27 97 Room Air 07/06/25 15:02 07/06/25 15:00 100 Room Air 07/06/25 14:42 97 Room Air Cardiovascular + regular rate Respiratory + respiratory effort normal Pre-Sedation Airway Assessment Smoking Status: Former smoker Hx Sleep Apnea: No Hx Difficult Intubation: No Short, Thick Neck: No Thyromental Distance: > or= 3.5 Finger Breadths Oral Cavity: + Dentures Mallampati Class: III ASA: ASA3 NPO Status Date of Last Intake of Fluids: 07/06/25 Time of Last Intake of Fluids: 20:00 Date of Last Intake of Solid Food: 07/06/25 Time of Last Intake of Solid Foods: 20:00 Procedure Planning Contraindications for Sedation: none Current Medications Reviewed: Yes Notes The planned sedation has been discussed with the patient. Informed Consent was obtained. I have identified the patient, determined the appropriateness of sedation and have assessed the patient immediately prior to the procedure. All medicine(s) and interventions are by my order.
--- NOTE | 2025-07-07 15:37 | Post Anesthesia Assessment ---
Date of Service July 07, 2025 Post Sedation Assessment Vital Signs Temp Pulse Pulse Pulse Resp BP Pulse Ox 07/07/25 14:25 74 18 167/74 H 96 07/07/25 14:10 78 78 18 147/74 H 96 07/07/25 12:17 98.0 F 66 20 174/70 H 97 07/07/25 10:43 96 07/07/25 07:46 97.9 F 58 L 20 160/70 H 96 07/07/25 06:45 55 L 07/07/25 03:13 98.0 F 54 L 14 142/61 H 96 07/06/25 23:29 97.9 F 60 16 126/63 97 07/06/25 22:03 76 07/06/25 19:27 97.7 F 65 16 162/77 H 97 O2 Del Method 07/07/25 14:25 Room Air 07/07/25 14:10 Room Air 07/07/25 12:17 Room Air 07/07/25 10:43 07/07/25 07:46 Room Air 07/07/25 06:45 07/07/25 03:13 Room Air 07/06/25 23:29 Room Air 07/06/25 22:03 07/06/25 19:27 Room Air Recovery Score Activity: Moves 4 extremities Respiration: Deep Breath/Cough Circulation: +/-20% PreAnes Value Consciousness: Fully Awake Oxygen Saturation: > 92% On Room Air Post Anesthesia Score: 10 Discharge Sedation Level of Care: Fast Track Phase II
--- NOTE | 2025-07-07 17:11 | Cardiac Catheterization ---
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 Cardiac Status Clinical evaluation leading to the procedure CAD Presenation: Stable angina Diagnostic Physicians Name: Adalid Coles MD Closure Device Recommendations: Medical Therapy and/or Counseling Cardiac Cath Procedure Full Procedure Date July 07, 2025 Pre-Procedure Diagnosis Pre-Procedure Diagnosis: Angina AUC Score AUC Score: 07 Post-Procedure Diagnosis Post-Procedure Diagnosis: Severe CAD and Successful PCI Procedure(s) Performed Procedure(s) Performed: Coronary Angiography and Drug Eluting Stent Wound Care Technician Adalid Coles MD Administrative Court Justice(s) Susi Estimated Blood Loss Estimated Blood Loss: 15 Medication(s) Medication(s): Fentanyl, Heparin, Lidocaine 1%, Nicardipine, Nitroglycerin and Versed Summary of Findings Indication: History of CAD post circumflex stenting 03/2025. Recurrent exertional chest symptoms. Access: 6 Fr slender right radial artery. Stenosis/tortuosity in brachial artery above the elbow. Able to navigate Glidewire through stenosis. Initially only able to pass 4 Estonian catheters. Catheters: 4 Fr JL 3.5, JL 4. 5 Fr EBU 3.5 guide Findings: LM -30-40% ostial, calcified stenosis (no waveform dampening with catheter engagement) LAD -medium caliber, proximal calcified 20% disease, mid vessel without significant disease. Distal vessel extends around the apex. Medium second diagonal without disease. Circumflex -large caliber, nondominant. 20 to 30% ostial, mid segment stents into large OM widely patent. Jailed distal AV groove circumflex with 40-50% ostial stenosis. RCA -dominant, large caliber, 30% mid segment stenosis. Medium RPDA/PAV without significant disease. LVEDP -10 IVUS of LMCA Left main cannulated with 5 Fr EBU 3.5 guide BMW wire placed into mid LAD Bonilla IVUS catheter navigated into proximal LAD Pullback revealed minimal ostial/distal left main disease. Eccentric minimally calcified plaque at left main ostium. Stenosis by IVUS 30 to 40%, MLA 8.3 mm. Catheter/wire removed and repeat angiography with no apparent complications. Arterial Closure: TR band Summary: 1. Multivessel nonobstructive coronary artery disease - 30-40% ostial left main stenosis (moderate eccentric mildly calcified plaque by IVUS with MLA 8.3 mm). Widely patent mid circumflex into OM stents. Jailed small distal AV groove 40- 50% ostial 30% mid RCA 2. Normal intracardiac filling pressure Recommendations: Medical management of nonobstructive CAD and continued ASCVD risk factor modification per Dr. Alfredo. Hemodynamics Rest Ao:: 190/68/118 Final Ao: 141/67/100 LV: 135/10 Recommendations Recommendations: Medical Therapy and/or Counseling Radiation Exposure (mGy) 429 Contrast (mls) 60 Anesthesia Moderate 7895-0508 Procedural Complication(s) None Disposition PCU I attest to the content of the Intraoperative Record and any orders documented therein. Any exceptions are noted below. [facility] Card Cath Procedure Codes Cardiac Catheterization Procedure 1: Cardiovascular Cath Procedures: 27403 Coronaries and LHC (+/-LV) Therapeutic Services & Ancillary Procedure 1: Cardiovascular Tx and Anc Procedures: 19707 IV Ultrasound (Coronary or Graft) Moderate Sedation Procedure 1: Sedation/Anesthesia: 34375 Mod Sedation by the same physician;Init15 Min Child Age 5 & Up Procedure 2: Sedation/Anesthesia: 44193 Mod Sedation by the same physician; Ea [id number] Minutes PG Care Time/CCT Total # of Minutes Spent Total Time Spent with Patient: Total time spent is greater than 50% in coordination of care (as documented) at patient's floor/unit and/or counseling patient:
[2025-07-08 06:15] LABS: Hematocrit (blood only) 30.5 % (37.0-47.0); Hemoglobin 10.2 g/dL (12.0-16.0); Mean Corpuscular Hemoglobin 30.9 pg (25.0-34.0); Mean Corpuscular Volume 92.4 fL (80.0-100.0); Platelet Count 231 K/uL (130-400); RDW Standard Deviation 45.7 fL (36.4-46.3); Red Blood Count 3.30 M/uL (4.20-5.40); White Blood Count 5.96 K/ul (4.8-10.8)
[2025-07-08 07:10] LABS: Anion Gap 9.0 (3-11); Blood Urea Nitrogen 30.0 mg/dl (6-23); Calcium 9.0 mg/dl (8.6-10.3); Carbon Dioxide 23.0 mmol/L (21-32); Chloride 106.0 mmol/L (98-107); Creatinine Clr Calc Pharmacy 24.6 ml/min; Glucose 89.0 mg/dl (70-99(Fasting)); Potassium 4.1 mmol/L (3.5-5.1); Sodium 138.0 mmol/L (136-145)
[2025-07-08 07:14] VITALS: RESP 18; TEMP 97.9; O2SAT 96
--- NOTE | 2025-07-08 09:31 | Discharge Summary ---
Discharge Summary Date of Service July 08, 2025 Principal Dx & Hospital Course #1 = Principal Diagnosis (1) Near syncope: -tele -echo -cardiology consult appreciated -cardiac cath clear no significant changes -cleared by cardiology for d/c home (2) Hypertension: -lisinopril (3) CAD (coronary artery disease): -asa -metoprolol -atorvastatin (4) Scleroderma: Plan Heparin SQ for DVT px Admission HPI Per Admitting Provider Pt is a 79 y/o female with PMH of CAD s/p stent x3 placement in March, scleroderma who presents with near syncopal episode while working out. Pt experienced lightheadedness, SOB and vomited. At the time her blood pressure was noted to be in the 60s. She denied any chest pain or palpitations. In the ER she had EKG which showed ST depressions in the septal leads. Her CXR was negative for any acute pathology. Due to her history of recent stent placement pt is being admitted for further cardiac evaluation of her near syncope episode. Discharge Exam GENERAL APPEARANCE NAD, activity normal for age, well developed/ well nourished, no cyanosis, pallor, or diaphoresis. EYES lids/conjunctiva normal. EARS/NOSE/THROAT Mucous membranes moist, nares normal, lips/teeth normal uvula midline without oral pharyngeal erythema, exudate or swelling TMs normal bilaterally. No lymphangitis/lymphedema. HEAD/NECK normocephalic atraumatic, no facial trauma, neck is supple. RESPIRATORY respiratory effort normal, speaks in full sentences, no tripod position, no accessory muscle use. Lungs clear to auscultation without rhonchi, wheezes, rales CARDIAC Regular rate and rhythm, no edema. ABDOMINAL Soft, ND/NT. No evidence of fluid wave. No pulsatile masses on exam, rebound tenderness, Fink sign or pain over Mcburney's point. MUSCLES/EXTREMITIES No abnormal range of motion, no swelling. SKIN Warm, pink and dry. No rashes, dermatoses, petechiae or lesions. NEUROLOGICAL Speech is clear and appropriate. Normal level of consciousness. Gait and coordination are normal. 5/5 strength in all extremities. PSYCH Normal mood and affect. Judgement/competence is appropriate Discharge Plan Discharge Items Patient Disposition: Home - Self-Care Reason For Visit: SYNCOPE Discharge Diagnosis: atypical chest pain Condition on Discharge: Fair Activity: Resume your previous activity Non-emergency contact: Primary Care Provider Call non-emergency contact if: you have any medication questions Follow-up/Referrals: Adalid Banuelos [Primary Care Provider] - Diet: Regular Addtl Attending Provider Instructions: Follow up with PMD in 1 week Pending Studies at Discharge: No Stand-Alone Forms: My [facility] [employer], Smoking Cessation Medications and DC Order Prescriptions: Continued lisinopril 20 mg tablet 20 mg PO DAILY Qty: 30 2RF turmeric 400 mg capsule 400 mg PO Q2D cyanocobalamin (vitamin B-12) 1,000 mcg tablet 1,000 mcg PO DAILY diclofenac sodium [Voltaren Arthritis Pain] 1 % gel 2 g topical QID Rx Instructions: apply to single elbow, wrist or hand; for hand includes palm/fingers/back of hand cholecalciferol (vitamin D3) 125 mcg (5,000 unit) capsule 125 mcg PO DAILY polyvinyl alcohol 1.4 % Drops 1 drp OPB BID PRN (Reason: Dry Eyes) loratadine [Claritin] 10 mg Tablet 10 mg PO QAM acetaminophen 500 mg Tablet 1,000 mg PO Q8H PRN (Reason: pain) Qty: 60 0RF zinc acetate 50 mg (zinc) Capsule 50 mg PO BID Lactobacillus acidophilus 10 billion cell Capsule 10,000 mmu cells PO DAILY nitroglycerin 0.4 mg tablet, sublingual 0.4 mg sublingual ONCE Qty: 10 0RF atorvastatin 80 mg tablet 80 mg PO DAILY Qty: 30 0RF metoprolol succinate 25 mg tablet extended release 24 hr 25 mg PO DAILY Qty: 30 0RF famotidine 20 mg tablet 40 mg PO DAILY ticagrelor [Brilinta] 90 mg tablet 90 mg PO BID Discharge Orders: Discharge Order (Routine); Ordered 07/08/25 Ordered By: Enrike Fitzpatrick Admission Data Admit Date/Time: 07/06/25 12:38 Attending Provider: Enrike Fitzpatrick Admit Provider: Enrike Fitzpatrick Primary Care Provider: Adalid Banuelos Other Providers: Enrike Fitzpatrick; Muna Alfredo Hospital Stay Data Consultations 07/06/25 12:36 ED Decision to Admit Stat 07/06/25 14:58 Consult Cardiology Routine Procedures Performed Operation Date: 07/07/25 13:00 Actual Procedures p Cineradiography w/Routine Exam - Adalid Coles MD p Cath, Left with Cors and Vent - Adalid Coles MD p IVUS Coronary each ADDL Vessel - Adalid Coles MD Diagnostic Imagining Performed 07/07/25 06:07 CL Cath Imgs for PACS use only Routine 07/07/25 14:03 CL IVUS Coronary Single Vessel Routine Pending Results Patient Have Any Pending Studies at Discharge: No Discharge Instructions Given to Patient (Per Discharging Provider) Follow up with PMD in 1 week Total Time Total Time Spent Total Time Spent (In Minutes): 50 Coding Level of Care Code 33829 INP/OBS DISCH >30 MIN Diagnoses Near syncope R55 Hypertension, unspecified type I10 Hypertension type: unspecified CAD (coronary artery disease) I25.10 Scleroderma M34.9
[2025-07-08 10:28] VITALS: BP 188/81; PULSE 68
--- NOTE | 2025-07-09 06:06 | Electrocardiogram Report ---
Test Reason : Blood Pressure : */* mmHG Vent. Rate : 68 BPM Atrial Rate : 68 BPM P-R Int : 186 ms QRS Dur : 78 ms QT Int : 416 ms P-R-T Axes : 74 59 78 degrees QTcB Int : 442 ms Normal sinus rhythm Possible Left atrial enlargement Nonspecific ST abnormality Abnormal ECG When compared with ECG of 09-Apr-2025 23:59, No significant change was found Confirmed by Qasim Rae ([id number]) on 07/09/2025 6:06:23 AM Referred By: REFERRED SELF Confirmed By: Qasim Rae
== END 2025-07-08 11:38 | disposition home or self-care (01) | DRG 322 ==
LOC: ED 08:55 → EDINP 12:38 → 2N 12:50 → 2S 07-07 14:56
DX: I10 Essential (primary) hypertension; I25.10 Atherosclerotic heart disease of native coronary artery without angina pectoris; M34.9 Systemic sclerosis, unspecified; Z79.899 Other long term (current) drug therapy; Z91.040 Latex allergy status; R55 Syncope and collapse; Z79.02 Long term (current) use of antithrombotics/antiplatelets; Z87.891 Personal history of nicotine dependence